=== PATIENT | female | born 1955 | race Caucasian/White ===

== ENCOUNTER 2022-12-17 15:32 | Emergency (ER) | payer OTHER ==
[~2022-12-17 15:32] MED LIST: Iopamidol-370 76% 500 ML MDV (1 ML CHARGE) ONE
[2022-12-17] MEDS ORDERED: Ondansetron PF 4 MG/2 ML Vial ONE (15:55)
[2022-12-17] MEDS ORDERED: Morphine 4 MG/ML VIAL ONE ×2 (15:55→18:03)
[2022-12-17] MEDS ORDERED: Boostrix 0.5 ML (Tdap) VIAL (>/=7 yrs of age) ONE (15:56)
[2022-12-17 16:21] LABS: #Basophils 0.1 thou/uL (0.0-0.2); #Eosinphils 0.3 thou/uL (0.0-0.7); #Monocytes 1.3 thou/uL (0.11-0.59); #Neutrophils 9.7 thou/uL (1.40-6.50); %Basophils 0.7 % (0.0-1.0); %Eosinophils 1.9 % (0.0-10.0); %Monocytes 9.3 % (0.0-10.0); %Neutrophils 72.1 % (42.0-75.0); Hemoglobin 12.1 g/dL (12.0-16.0); Mean Corpuscular HGB CONC 31.8 g/dL (32.0-36.0); Mean Corpuscular Hemoglobin 31.5 pg (27.0-31.0); Mean Platelet Volume 10.4 fL (7.4-10.4); Platelet Count 319 10x3/uL (130-400); RBC Distribution Width 14.8 % (11.5-14.5); Red Blood Cell (RBC) Count 3.84 mill/uL (4.20-5.40); White Blood Cell (WBC) Count 13.5 10x3/uL (4.8-10.8)
[2022-12-17 16:49] LABS: ALT (SGPT) 43 U/L (8-55); AST (SGOT) 68 U/L (5-34); Albumin 4.5 g/dL (3.4-4.8); Alkaline Phosphatase 118 U/L (40-110); Anion Gap 18 mmol/L (10-20); BUN (Urea Nitrogen) 25 mg/dL (9.8-20.1); Bilirubin, Total 0.2 mg/dL (0.2-1.2); Calc. Creatinine Clearance 0 mL/min (70-130); Calcium 9.3 mg/dL (7.8-10.44); Carbon Dioxide 14 mmol/L (23-31); Chloride 107 mmol/L (98-107); Estimated GFR 41; Globulin 3.3 g/dL (2.4-3.5); Glucose 105 mg/dL (80-115); Protein, Total 7.8 g/dL (5.8-8.1); Sodium 133 mmol/L (136-145)
[2022-12-17 16:54] LABS: Potassium 6.2 mmol/L (3.5-5.1)
[2022-12-17] MEDS ORDERED: Lidocaine 1% PF 5 ML VIAL ONE (16:56)
[2022-12-17] MEDS ORDERED: Sodium Chloride 0.9% 100 ML ONE ×2 (16:56→17:11)
[2022-12-17] MEDS ORDERED: CEFAZOLIN 1 GM VIAL ONE (16:56)
[2022-12-17] MEDS ORDERED: Ketorolac Tromethamine 30 MG/ML VIAL ONE (17:04)
[2022-12-17] MEDS ORDERED: Piperacillin/Tazobactam 3.375 GM VIAL ONE (17:11)
[2022-12-17] MEDS ORDERED: Sodium Bicarb 50 MEQ/50 ML VIAL ONE (17:41)
[2022-12-17] MEDS ORDERED: Calcium Chloride 1 GM/10 ML Abboject SYRINGE ONE (17:41)
[2022-12-17] MEDS ORDERED: Bacitracin 1 PK ONE (18:06)
[2022-12-17 18:09] LABS: Anion Gap 14 mmol/L (10-20); BUN (Urea Nitrogen) 26 mg/dL (9.8-20.1); CK (CPK) 626 U/L (29-168); Calc. Creatinine Clearance 0 mL/min (70-130); Calcium 8.8 mg/dL (7.8-10.44); Carbon Dioxide 17 mmol/L (23-31); Chloride 107 mmol/L (98-107); Estimated GFR 44; Glucose 114 mg/dL (80-115); Sodium 132 mmol/L (136-145)
[2022-12-17 18:39] LABS: Potassium 6.3 mmol/L (3.5-5.1)
[2022-12-17] MEDS ORDERED: Ipratropium/Albuterol 3 ML NEB ONE (18:52)
[2022-12-17] MEDS ORDERED: Insulin Regular 300 UNITS/3 ML VIAL ONE (19:12)
== END 2022-12-17 19:23 | disposition short-term general hospital (02) ==
LOC: ERS 15:32
DX: K22.3 Perforation of esophagus (principal); J94.2 Hemothorax; E87.5 Hyperkalemia; E78.00 Pure hypercholesterolemia, unspecified; I10 Essential (primary) hypertension; F17.210 Nicotine dependence, cigarettes, uncomplicated
CPT/HCPCS: 12001; 36415; 36416; 70450; 71045; 71260; 72125; 74177; 80053; 82550; 85025; 86850; 86900; 86901; 90471; 90715; 93005; 94640; 96365; 96375; 96376; G0390; J0690; J1815; J1885; J2270; J2405; J2543; J3490; J7620; Q9967

== ENCOUNTER 2023-08-17 22:00 | Inpatient (IN) | payer MEDICARE, OTHER ==
[2023-08-18] MEDS: Lactated Ringer's 1,000 ML IV SCH (00:12)
[2023-08-18] MEDS ORDERED: Acetaminophen 325 MG TAB PO PRN (00:40)
[2023-08-18] MEDS ORDERED: Ondansetron PF 4 MG/2 ML Vial IVP PRN (00:40)
[2023-08-18] MEDS: Morphine 4 MG/ML VIAL SLOW IVP PRN (01:00)
[2023-08-18] MEDS ORDERED: HYDROcodone/Acetaminophen 10/325 mg Tablet PO PRN (01:44)
[2023-08-18] MEDS: Piperacillin/Tazobactam 3.375 GM in Sodium Chloride 0.9% 100 ML IVPB SCH (02:33)
[2023-08-18] MEDS: Thiamine HCl 200 MG/2 ML VIAL SLOW IVP SCH (02:36)
[2023-08-18 02:49] LABS: Amphetamine Not Detected (NotDetected); Barbiturates Screen Not Detected (NotDetected); Benzodiazepine Screen Detected (NotDetected); Cocaine Metabolite Screen Not Detected (NotDetected); Methadone Not Detected (NotDetected); Methamphetamine Not Detected (NotDetected); Opiate Screen Detected (NotDetected); Oxycodone Screen Not Detected (NotDetected); Phencyclidine (PCP) Not Detected (NotDetected); THC/Cannabinoid Screen Detected (NotDetected); Tricyclic Screen Not Detected (NotDetected)
[2023-08-18] MEDS: HYDROmorphone 0.5 MG/0.5 ML SYRINGE SLOW IVP SCH (02:57)
[2023-08-18 03:05] LABS: Hematocrit 40.3 % (36.0-47.0); Hemoglobin 13.6 g/dL (12.0-16.0); Mean Corpuscular HGB CONC 33.7 g/dL (32.0-36.0); Mean Corpuscular Hemoglobin 31.1 pg (27.0-31.0); Mean Platelet Volume 10.9 fL (7.4-10.4); Platelet Count 472 10x3/uL (130-400); RBC Distribution Width 14.4 % (11.5-14.5); Red Blood Cell (RBC) Count 4.38 mill/uL (4.20-5.40)
[2023-08-18 03:17] LABS: ALT (SGPT) 14 U/L (8-55); AST (SGOT) 22 U/L (5-34); Albumin 3.2 g/dL (3.4-4.8); Alkaline Phosphatase 106 U/L (40-110); Anion Gap 19 mmol/L (10-20); BUN (Urea Nitrogen) 11 mg/dL (9.8-20.1); Bilirubin, Total 0.4 mg/dL (0.2-1.2); Calc. Creatinine Clearance 0 mL/min (70-130); Carbon Dioxide 22 mmol/L (23-31); Chloride 98 mmol/L (98-107); Estimated GFR 91; Globulin 5.2 g/dL (2.4-3.5); Glucose 158 mg/dL (80-115); Magnesium 1.5 mg/dL (1.6-2.6); Potassium 3.8 mmol/L (3.5-5.1); Protein, Total 8.4 g/dL (5.8-8.1); Sodium 135 mmol/L (136-145)
[2023-08-18 03:36] LABS: Band 5 % (5-11); Macrocytosis SLIGHT = 6-15 cells HPF (0-5); Monocytes 6 % (0-10); Neutrophil 89 % (42-75); Platelet Adequacy Comment Platelets Increased; Polychromasia SLIGHT = 2-3 cells HPF (0-2); Vacuoles SLIGHT
[2023-08-18] MEDS: Lactated Ringer's 500 ML IV SCH (03:43)
[2023-08-18 03:52] VITALS: BMI 21.9
[2023-08-18] MEDS: Magnesium 2 GM/50 ML(in water) 2 GM in Premix 1 BAG IVPB SCH (03:53)
[2023-08-18] MEDS: Labetalol HCl 100 MG/20 ML VIAL SLOW IVP SCH (03:54)
[2023-08-18] MEDS: hydrALAZINE 20 MG/ML VIAL SLOW IVP SCH (04:07)
[2023-08-18] MEDS ORDERED: Labetalol HCl 100 MG/20 ML VIAL SLOW IVP PRN ×2 (05:05→05:19)
[2023-08-18] MEDS ORDERED: Piperacillin/Tazobactam 4.5 GM in Sodium Chloride 0.9% 100 ML IVPB SCH (06:00)
[2023-08-18 06:26] LABS: #Basophils 0.05 10x3/uL (0.0-0.2); #Eosinphils Less than 0.03 10x3/uL (0.0-0.7); %Basophils 0.2 % (0.0-1.0); %Monocytes 8.9 % (0.0-10.0); %Neutrophils 88.4 % (42.0-75.0); Hematocrit 39.9 % (36.0-47.0); Hemoglobin 13.4 g/dL (12.0-16.0); Mean Corpuscular HGB CONC 33.6 g/dL (32.0-36.0); Mean Corpuscular Volume 92.4 fL (78.0-98.0); Mean Platelet Volume 11.7 fL (7.4-10.4); Platelet Count 515 10x3/uL (130-400); RBC Distribution Width 14.4 % (11.5-14.5); Red Blood Cell (RBC) Count 4.32 mill/uL (4.20-5.40)
[2023-08-18 06:34] LABS: Lactic Acid 2.9 mmol/L (0.5-2.2)
[2023-08-18 06:37] LABS: Hemoglobin A1c 5.4 % (4.0-6.0)
[2023-08-18 06:41] LABS: Anion Gap 20 mmol/L (10-20); BUN (Urea Nitrogen) 10 mg/dL (9.8-20.1); Calc. Creatinine Clearance 64 mL/min (70-130); Calcium 10.2 mg/dL (7.8-10.44); Carbon Dioxide 23 mmol/L (23-31); Chloride 96 mmol/L (98-107); Estimated GFR 95; Glucose 133 mg/dL (80-115); Potassium 3.6 mmol/L (3.5-5.1); Sodium 135 mmol/L (136-145)
[2023-08-18] MEDS ORDERED: diphenhydrAMINE 50 MG/ML VIAL IM PRN (07:02)
[2023-08-18] MEDS ORDERED: Naloxone HCl 0.4 mg/ml Vial IV PRN (07:02)
[2023-08-18] MEDS ORDERED: diphenhydrAMINE 25 MG CAP PO PRN (07:02)
[2023-08-18] MEDS ORDERED: diphenhydrAMINE 50 MG/ML VIAL IVP PRN (07:02)
[2023-08-18] MEDS ORDERED: FENTANYL 500 MCG/10 ML VIAL 2,000 MCG in Sodium Chloride 0.9% 60 ML IV PRN (07:02)
[2023-08-18] MEDS ORDERED: Communication Order-Pharmacy FS SCH (07:15)
[2023-08-18] MEDS ORDERED: Lidocaine 2% PF 5 ML VIAL ONE (07:27)
[2023-08-18] MEDS ORDERED: Ondansetron PF 4 MG/2 ML Vial ONE (07:27)
[2023-08-18] MEDS ORDERED: Dexamethasone 4 mg/ml Vial ONE (07:27)
[2023-08-18] MEDS ORDERED: SUCCINYLCHOLINE/SOD CL,ISO/PF 200 MG/10 ML SYRINGE FS ONE (07:27)
[2023-08-18] MEDS ORDERED: fentaNYL PF 100 MCG/2 ML SYRINGE ONE (07:27)
[2023-08-18] MEDS ORDERED: Rocuronium Bromide 10 MG/ML (10ML VIAL) ONE (07:27)
[2023-08-18] MEDS ORDERED: PROPOFOL 40 ML ONE (07:27)
[2023-08-18] MEDS ORDERED: EPINEPHrine 1 MG/ML VIAL ONE (07:42)
[2023-08-18] MEDS ORDERED: Bupivacaine PF 0.5% 30 ML VIAL ONE (07:42)
[2023-08-18] MEDS ORDERED: Etomidate 40 MG (20 mL) VIAL ONE (07:43)
[2023-08-18] MEDS ORDERED: Albumin 5% 250 ML ONE (07:43)
[2023-08-18] MEDS ORDERED: Magnesium 5 GM/10 ML VIAL ONE (08:00)
[2023-08-18] MEDS ORDERED: HYDROmorphone 2 MG/ML VIAL ONE (08:07)
[2023-08-18] MEDS ORDERED: Midazolam HCl 2 mg/2 ml Vial ONE (08:10)
[2023-08-18] MEDS ORDERED: Ketamine In 0.9 % NaCl 50 MG/5 ML SYRINGE ONE (08:26)
[2023-08-18] MEDS ORDERED: PHENYLEPHRINE-NS 100 MCG/ML 10 ML SYRINGE ONE (08:58)
[2023-08-18] MEDS ORDERED: Fentanyl BOLUS 250 ML IVPB PRN (10:30)
[2023-08-18] MEDS: Propofol 1,000 MG/100 ML VIAL IV ONE (10:30)
[2023-08-18] MEDS ORDERED: Propofol BOLUS 1,000 MG/100 ML VIAL IV PRN (10:30)
[2023-08-18] MEDS: Fentanyl CADD 100 ML ONE (10:30)
[2023-08-18 10:45] LABS: Actual Bicarbonate (HCO3a) 23.2 mEq/L (22-28); Base Excess (BEa) 0.4 mEq/L (-2.0 to +3.0); CO2 Tension 31.3 mmHg (35.0-45.0); Calcium, Ionized (arterial) 1.08 mmol/L (1.12-1.30); Carboxyhemoglobin (COHb) 0.4 gm% (0.0-3.0); Hematocrit-ABG 34 % (36.0-47.0); Hemoglobin (Hb) 11.4 g/dL (12.0-16.0); O2 Tension (PaO2), arterial 71.1 mmHg (> 80.0); Potassium - ABG Lab 3.16 mmol/L (3.70-5.30); pH, Arterial 7.488 (7.35-7.45)
[2023-08-18 10:46] LABS: Puncture Site RRA
[2023-08-18] MEDS: Lorazepam 2 MG/ML VIAL SLOW IVP PRN (15:00)
[2023-08-18] MEDS: Propofol 1,000 MG/100 ML VIAL IV PRN (16:44)
[2023-08-18] MEDS: Acetaminophen 650 MG Suppository PR PRN (18:28)
[2023-08-18 21:33] LABS: Hematocrit 29.8 % (36.0-47.0); Hemoglobin 10.1 g/dL (12.0-16.0); Mean Corpuscular HGB CONC 33.9 g/dL (32.0-36.0); Mean Corpuscular Hemoglobin 30.1 pg (27.0-31.0); Mean Corpuscular Volume 88.7 fL (78.0-98.0); Mean Platelet Volume 11.1 fL (7.4-10.4); Platelet Count 335 10x3/uL (130-400); RBC Distribution Width 14.5 % (11.5-14.5); Red Blood Cell (RBC) Count 3.36 mill/uL (4.20-5.40)
[2023-08-18 21:49] LABS: Lactic Acid 1.3 mmol/L (0.5-2.2)
[2023-08-18 21:51] LABS: Phosphorus 3.2 mg/dL (2.3-4.7)
[2023-08-18 21:55] LABS: Anion Gap 18 mmol/L (10-20); BUN (Urea Nitrogen) 9 mg/dL (9.8-20.1); Calc. Creatinine Clearance 67 mL/min (70-130); Calcium 8.4 mg/dL (7.8-10.44); Carbon Dioxide 21 mmol/L (23-31); Chloride 100 mmol/L (98-107); Estimated GFR 97; Glucose 120 mg/dL (80-115); Magnesium 1.9 mg/dL (1.6-2.6); Potassium 3.3 mmol/L (3.5-5.1); Sodium 136 mmol/L (136-145)
[2023-08-18 22:06] LABS: Band 29 % (5-11); Hypochromia SLIGHT = 6-15 cells HPF (0-5); Large Platelets 2.9 % (0-5); Lymphocytes 12 % (21-51); Monocytes 3 % (0-10); Neutrophil 55 % (42-75); Platelet Adequacy Comment Platelets Normal; Polychromasia SLIGHT = 2-3 cells HPF (0-2); Reactive Lymphocytes 1 % (0-10)
[2023-08-18] MEDS: Potassium Chloride 20 MEQ in Premix 1 BAG IVPB SCH (23:20)
[2023-08-19 04:09] LABS: Hematocrit 30.9 % (36.0-47.0); Hemoglobin 10.2 g/dL (12.0-16.0); Mean Corpuscular Hemoglobin 30.5 pg (27.0-31.0); Mean Corpuscular Volume 92.5 fL (78.0-98.0); Mean Platelet Volume 11.5 fL (7.4-10.4); Platelet Count 280 10x3/uL (130-400); RBC Distribution Width 14.6 % (11.5-14.5); Red Blood Cell (RBC) Count 3.34 mill/uL (4.20-5.40)
[2023-08-19 04:37] LABS: Anisocytosis SLIGHT = 6-15 cells HPF (0-5); Band 11 % (5-11); Hypochromia SLIGHT = 6-15 cells HPF (0-5); Large Platelets 6.9 % (0-5); Lymphocytes 8 % (21-51); Monocytes 4 % (0-10); Neutrophil 77 % (42-75); Platelet Adequacy Comment Platelets Normal; Polychromasia SLIGHT = 2-3 cells HPF (0-2)
[2023-08-19 04:45] LABS: Lactic Acid 1.1 mmol/L (0.5-2.2)
[2023-08-19 04:54] LABS: ALT (SGPT) 10 U/L (8-55); AST (SGOT) 21 U/L (5-34); Albumin 2.2 g/dL (3.4-4.8); Alkaline Phosphatase 77 U/L (40-110); Anion Gap 18 mmol/L (10-20); BUN (Urea Nitrogen) 10 mg/dL (9.8-20.1); Bilirubin, Total 0.7 mg/dL (0.2-1.2); Calc. Creatinine Clearance 72 mL/min (70-130); Calcium 8.7 mg/dL (7.8-10.44); Carbon Dioxide 18 mmol/L (23-31); Chloride 102 mmol/L (98-107); Estimated GFR 98; Globulin 3.7 g/dL (2.4-3.5); Glucose 93 mg/dL (80-115); Protein, Total 5.9 g/dL (5.8-8.1); Sodium 134 mmol/L (136-145)
[2023-08-19] MEDS: Fentanyl CADD 100 ML IV SCH (05:54)
[2023-08-19] MEDS: Pantoprazole 40 MG VIAL IVP SCH (10:15)
[2023-08-19] MEDS ORDERED: Rocuronium Bromide 10 MG/ML (10ML VIAL) ONE (11:24)
[2023-08-19] MEDS ORDERED: PROPOFOL 20 ML ONE (11:24)
[2023-08-19] MEDS ORDERED: fentaNYL PF 100 MCG/2 ML SYRINGE ONE ×2 (11:24→12:24)
[2023-08-19] MEDS ORDERED: SUGAMMADEX SODIUM 200 MG/2 ML VIAL ONE (12:20)
[2023-08-19] MEDS ORDERED: Dexamethasone 4 mg/ml Vial ONE (12:24)
[2023-08-19] MEDS ORDERED: Ondansetron PF 4 MG/2 ML Vial ONE (12:24)
[2023-08-19] MEDS ORDERED: HYDROmorphone 2 MG/ML VIAL ONE (12:27)
[2023-08-19] MEDS ORDERED: Esmolol 100 MG/10 ML VIAL ONE (12:38)
[2023-08-19 13:55] VITALS: BMI 21.9
[2023-08-19] MEDS: Morphine 2 MG/ML VIAL SLOW IVP PRN (22:02)
[2023-08-20 05:11] LABS: Hematocrit 20.4 % (36.0-47.0); Hemoglobin 6.8 g/dL (12.0-16.0); Mean Corpuscular HGB CONC 33.3 g/dL (32.0-36.0); Mean Corpuscular Hemoglobin 30.9 pg (27.0-31.0); Mean Corpuscular Volume 92.7 fL (78.0-98.0); Mean Platelet Volume 11.3 fL (7.4-10.4); Platelet Count 369 10x3/uL (130-400)
[2023-08-20 05:20] LABS: Anion Gap 16 mmol/L (10-20); BUN (Urea Nitrogen) 11 mg/dL (9.8-20.1); Calc. Creatinine Clearance 73 mL/min (70-130); Carbon Dioxide 23 mmol/L (23-31); Chloride 101 mmol/L (98-107); Potassium 3.1 mmol/L (3.5-5.1); Sodium 137 mmol/L (136-145)
[2023-08-20 05:21] LABS: Calcium 8.3 mg/dL (7.8-10.44); Estimated GFR 99; Glucose 104 mg/dL (80-115); Phosphorus 3.1 mg/dL (2.3-4.7)
[2023-08-20 05:44] LABS: Anisocytosis SLIGHT = 6-15 cells HPF (0-5); Band 6 % (5-11); Lymphocytes 4 % (21-51); Macrocytosis SLIGHT = 6-15 cells HPF (0-5); Monocytes 6 % (0-10); Neutrophil 84 % (42-75); Platelet Adequacy Comment Platelets Normal; Polychromasia SLIGHT = 2-3 cells HPF (0-2); Smudge Cells 6.9 %
[2023-08-20] MEDS ORDERED: Dexmedetomidine In 0.9 % NaCl 100 ML IVPB SCH (09:00)
[2023-08-20] MEDS: DC Sedation Protocol FS ONE (10:23)
[2023-08-20] MEDS ORDERED: Electrolyte Replacement Protocol 1 EACH FS SCH (14:44)
[2023-08-20] MEDS: Lactated Ringer's 1,000 ML IV SCH (15:48)
[2023-08-20] MEDS: Magnesium 2 GM/50 ML(in water) 2 GM in Premix 1 BAG IVPB SCH (15:48)
[2023-08-20] MEDS: Potassium Chloride 20 MEQ in Premix 1 BAG IVPB SCH (15:49)
[2023-08-20] MEDS: Ketorolac Tromethamine 30 MG (1 mL) VIAL IVP PRN (17:50)
[2023-08-20 20:57] LABS: #Basophils 0.05 10x3/uL (0.0-0.2); #Eosinphils Less than 0.03 10x3/uL (0.0-0.7); %Basophils 0.3 % (0.0-1.0); %Eosinophils 0.1 % (0.0-10.0); %Monocytes 7.1 % (0.0-10.0); %Neutrophils 84.8 % (42.0-75.0); Hematocrit 34.8 % (36.0-47.0); Hemoglobin 11.9 g/dL (12.0-16.0); Mean Corpuscular HGB CONC 34.2 g/dL (32.0-36.0); Mean Corpuscular Hemoglobin 30.5 pg (27.0-31.0); Mean Corpuscular Volume 89.2 fL (78.0-98.0); Mean Platelet Volume 11.5 fL (7.4-10.4); Platelet Count 273 10x3/uL (130-400); RBC Distribution Width 17.2 % (11.5-14.5)
[2023-08-20 20:58] LABS: Plasma Cells 0 % (0-0); Platelet Adequacy Comment Appears Adequate
[2023-08-21 05:15] LABS: Hematocrit 34.1 % (36.0-47.0); Hemoglobin 11.6 g/dL (12.0-16.0); Mean Corpuscular Volume 88.1 fL (78.0-98.0); Mean Platelet Volume 11.2 fL (7.4-10.4); Platelet Count 340 10x3/uL (130-400); RBC Distribution Width 17.2 % (11.5-14.5); Red Blood Cell (RBC) Count 3.87 mill/uL (4.20-5.40)
[2023-08-21 05:25] LABS: ALT (SGPT) 15 U/L (8-55); AST (SGOT) 46 U/L (5-34); Albumin 1.6 g/dL (3.4-4.8); Alkaline Phosphatase 79 U/L (40-110); Anion Gap 15 mmol/L (10-20); BUN (Urea Nitrogen) 12 mg/dL (9.8-20.1); Bilirubin, Total 2.3 mg/dL (0.2-1.2); Calc. Creatinine Clearance 72 mL/min (70-130); Calcium 8.1 mg/dL (7.8-10.44); Carbon Dioxide 21 mmol/L (23-31); Chloride 106 mmol/L (98-107); Estimated GFR 98; Glucose 82 mg/dL (80-115); Potassium 3.4 mmol/L (3.5-5.1); Protein, Total 5.6 g/dL (5.8-8.1); Sodium 139 mmol/L (136-145)
[2023-08-21 05:55] LABS: Anisocytosis MODERATE=16-30 cells HPF (0-5); Band 1 % (5-11); Hypochromia SLIGHT = 6-15 cells HPF (0-5); Lymphocytes 4 % (21-51); Monocytes 9 % (0-10); Neutrophil 86 % (42-75); Platelet Adequacy Comment Platelets Normal; Polychromasia SLIGHT = 2-3 cells HPF (0-2)
[2023-08-21] MEDS: Potassium Chloride 20 MEQ in Premix 1 BAG IVPB SCH (09:39)
[2023-08-21] MEDS: Morphine 2 MG/ML VIAL SLOW IVP PRN (11:14)
[2023-08-21 14:52] LABS: Potassium 3.8 mmol/L (3.5-5.1)
[2023-08-21 14:54] LABS: Hematocrit 35.7 % (36.0-47.0); Hemoglobin 12.1 g/dL (12.0-16.0)
[2023-08-21] MEDS: Magnesium 2 GM/50 ML(in water) 2 GM in Premix 1 BAG IVPB SCH (17:03)
[2023-08-21] MEDS: Dextrose 5%-Lactated Ringers 1,000 ML IV SCH (23:25)
[2023-08-22 04:13] LABS: #Basophils 0.08 10x3/uL (0.0-0.2); %Basophils 0.5 % (0.0-1.0); %Eosinophils 0.4 % (0.0-10.0); %Lymphocytes 8.8 % (21.0-51.0); %Monocytes 10.7 % (0.0-10.0); %Neutrophils 76.8 % (42.0-75.0); Hematocrit 35.9 % (36.0-47.0); Hemoglobin 12.3 g/dL (12.0-16.0); Mean Corpuscular HGB CONC 34.3 g/dL (32.0-36.0); Mean Corpuscular Hemoglobin 29.3 pg (27.0-31.0); Mean Corpuscular Volume 85.5 fL (78.0-98.0); Mean Platelet Volume 10.5 fL (7.4-10.4); Platelet Count 407 10x3/uL (130-400); RBC Distribution Width 16.5 % (11.5-14.5)
[2023-08-22 04:26] LABS: ALT (SGPT) 17 U/L (8-55); AST (SGOT) 42 U/L (5-34); Albumin 1.7 g/dL (3.4-4.8); Alkaline Phosphatase 115 U/L (40-110); Anion Gap 16 mmol/L (10-20); BUN (Urea Nitrogen) 8 mg/dL (9.8-20.1); Bilirubin, Total 2.4 mg/dL (0.2-1.2); Calc. Creatinine Clearance 81 mL/min (70-130); Calcium 8.2 mg/dL (7.8-10.44); Carbon Dioxide 20 mmol/L (23-31); Chloride 102 mmol/L (98-107); Estimated GFR 101; Globulin 4.2 g/dL (2.4-3.5); Glucose 108 mg/dL (80-115); Potassium 2.8 mmol/L (3.5-5.1); Protein, Total 5.9 g/dL (5.8-8.1); Sodium 135 mmol/L (136-145)
[2023-08-22] MEDS: Potassium Chloride 40 MEQ in Premix 1 BAG IVPB SCH (04:50)
[2023-08-22] MEDS ORDERED: NS 0.9% w/ 20 MEQ KCL 1,000 ML/1,000 ML BAG IV SCH (07:30)
[2023-08-22] MEDS: Enoxaparin 40 MG (0.4 mL) SYRINGE SC SCH (08:02)
[2023-08-22] MEDS: D5 0.9% NS w/ 20 mEq KCl 1,000 ML IV SCH ×2 (10:36→17:58)
[2023-08-22 14:03] LABS: Anion Gap 13 mmol/L (10-20); Carbon Dioxide 21 mmol/L (23-31); Chloride 104 mmol/L (98-107); Potassium 3.5 mmol/L (3.5-5.1); Sodium 134 mmol/L (136-145)
[2023-08-22 14:54] LABS: Potassium 3.5 mmol/L (3.5-5.1)
[2023-08-22] MEDS: Ketorolac Tromethamine 30 MG (1 mL) VIAL IVP SCH (15:10)
[2023-08-22] MEDS: Acetaminophen 500 MG TAB PO SCH (21:09)
[2023-08-22] MEDS: Gabapentin 300 MG CAP PO SCH (21:10)
[2023-08-22] MEDS: ALPRAZolam 0.5 MG TAB PO PRN (21:13)
[2023-08-23 06:19] LABS: ALT (SGPT) 20 U/L (8-55); AST (SGOT) 33 U/L (5-34); Albumin 1.7 g/dL (3.4-4.8); Alkaline Phosphatase 107 U/L (40-110); Anion Gap 11 mmol/L (10-20); BUN (Urea Nitrogen) 6 mg/dL (9.8-20.1); Calc. Creatinine Clearance 95 mL/min (70-130); Carbon Dioxide 19 mmol/L (23-31); Chloride 107 mmol/L (98-107); Estimated GFR 105; Glucose 99 mg/dL (80-115); Potassium 3.4 mmol/L (3.5-5.1); Protein, Total 5.7 g/dL (5.8-8.1); Sodium 134 mmol/L (136-145)
[2023-08-23 06:55] LABS: #Basophils 0.04 10x3/uL (0.0-0.2); %Basophils 0.3 % (0.0-1.0); %Eosinophils 1.9 % (0.0-10.0); %Lymphocytes 10.8 % (21.0-51.0); %Monocytes 10.5 % (0.0-10.0); %Neutrophils 73.7 % (42.0-75.0); Hematocrit 35.5 % (36.0-47.0); Hemoglobin 12.1 g/dL (12.0-16.0); Mean Corpuscular HGB CONC 34.1 g/dL (32.0-36.0); Mean Corpuscular Hemoglobin 29.7 pg (27.0-31.0); Mean Platelet Volume 10.8 fL (7.4-10.4); Platelet Count 406 10x3/uL (130-400); RBC Distribution Width 16.2 % (11.5-14.5); Red Blood Cell (RBC) Count 4.08 mill/uL (4.20-5.40)
[2023-08-23] MEDS: Potassium Chloride 20 MEQ TAB PO SCH (08:42)
[2023-08-23] MEDS: Gabapentin 300 MG CAP PO SCH (08:43)
[2023-08-24 06:29] LABS: #Basophils 0.04 10x3/uL (0.0-0.2); %Basophils 0.3 % (0.0-1.0); %Eosinophils 1.8 % (0.0-10.0); %Lymphocytes 9.5 % (21.0-51.0); %Monocytes 10.7 % (0.0-10.0); %Neutrophils 75.2 % (42.0-75.0); Hematocrit 36.6 % (36.0-47.0); Hemoglobin 12.3 g/dL (12.0-16.0); Mean Corpuscular HGB CONC 33.6 g/dL (32.0-36.0); Mean Corpuscular Hemoglobin 29.6 pg (27.0-31.0); Mean Platelet Volume 9.9 fL (7.4-10.4); Platelet Count 443 10x3/uL (130-400); Red Blood Cell (RBC) Count 4.16 mill/uL (4.20-5.40)
[2023-08-24 07:12] LABS: ALT (SGPT) 19 U/L (8-55); AST (SGOT) 24 U/L (5-34); Albumin 1.9 g/dL (3.4-4.8); Alkaline Phosphatase 101 U/L (40-110); Anion Gap 13 mmol/L (10-20); BUN (Urea Nitrogen) 7 mg/dL (9.8-20.1); Bilirubin, Total 1.3 mg/dL (0.2-1.2); Calc. Creatinine Clearance 91 mL/min (70-130); Calcium 8.5 mg/dL (7.8-10.44); Carbon Dioxide 18 mmol/L (23-31); Chloride 110 mmol/L (98-107); Estimated GFR 104; Globulin 4.1 g/dL (2.4-3.5); Glucose 100 mg/dL (80-115); Potassium 3.4 mmol/L (3.5-5.1); Sodium 138 mmol/L (136-145)
[2023-08-24] MEDS ORDERED: Electrolyte Replacement Protocol 1 EACH FS SCH (07:30)
[2023-08-24] MEDS: Potassium Bicarbonate/Cit Ac 20 MEQ TAB PO SCH ×2 (10:00→14:55)
[2023-08-24] MEDS ORDERED: Cyclobenzaprine 10 MG TAB PO PRN (12:00)
[2023-08-24] MEDS: Potassium Chloride 20 MEQ TAB PO SCH (12:43)
[2023-08-24 14:10] VITALS: BP 110/67; TEMP 97.5
[2023-08-24] MEDS ORDERED: Amlodipine 10 MG TAB PO SCH (21:00)
[2023-08-25] MEDS ORDERED: Losartan 25 MG TAB PO SCH (09:00)
[2023-08-25] MEDS ORDERED: Pantoprazole DR 40 MG TAB PO SCH (09:00)
[2023-08-25] MEDS ORDERED: Thiamine 100 MG TAB PO SCH (09:00)
== END 2023-08-24 15:30 | disposition home or self-care (01) | DRG 329 ==
LOC: PREOBSVTOIN 22:06 → 2NO 08-18 00:12 → CCU 08-18 09:37 → SURG A 08-23 00:36
PROVIDERS: ADMIT Internal Medicine; ATTEND Family Medicine
PROC: 0T9B70Z Drainage of Bladder with Drainage Device, Via Natural or Artificial Opening (ICD-10-PCS; principal; 2023-08-18)
PROC: 0DTA0ZZ Resection of Jejunum, Open Approach (ICD-10-PCS; 2023-08-18)
PROC: 0DTJ4ZZ Resection of Appendix, Percutaneous Endoscopic Approach (ICD-10-PCS; 2023-08-18)
PROC: 0DJD4ZZ Inspection of Lower Intestinal Tract, Percutaneous Endoscopic Approach (ICD-10-PCS; 2023-08-18)
PROC: 0BH17EZ Insertion of Endotracheal Airway into Trachea, Via Natural or Artificial Opening (ICD-10-PCS; 2023-08-18)
PROC: 4A03XR1 Measurement of Arterial Saturation, Peripheral, External Approach (ICD-10-PCS; 2023-08-18)
PROC: 5A1945Z Respiratory Ventilation, 24-96 Consecutive Hours (ICD-10-PCS; 2023-08-18)
PROC: 30233N1 Transfusion of Nonautologous Red Blood Cells into Peripheral Vein, Percutaneous Approach (ICD-10-PCS; 2023-08-20)
DX: K55.059 Acute (reversible) ischemia of intestine, part and extent unspecified (principal); A41.9 Sepsis, unspecified organism; J95.821 Acute postprocedural respiratory failure; K35.33 Acute appendicitis with perforation, localized peritonitis, and gangrene, with abscess; E87.20 Acidosis, unspecified; E87.1 Hypo-osmolality and hyponatremia; D62 Acute posthemorrhagic anemia; K55.9 Vascular disorder of intestine, unspecified; K55.1 Chronic vascular disorders of intestine; I10 Essential (primary) hypertension; E78.5 Hyperlipidemia, unspecified; G47.33 Obstructive sleep apnea (adult) (pediatric); M19.90 Unspecified osteoarthritis, unspecified site; F17.200 Nicotine dependence, unspecified, uncomplicated; G89.29 Other chronic pain; M54.9 Dorsalgia, unspecified; D72.829 Elevated white blood cell count, unspecified; F41.1 Generalized anxiety disorder; F17.210 Nicotine dependence, cigarettes, uncomplicated; E11.51 Type 2 diabetes mellitus with diabetic peripheral angiopathy without gangrene; I25.10 Atherosclerotic heart disease of native coronary artery without angina pectoris; E87.6 Hypokalemia; Z79.810 Long term (current) use of selective estrogen receptor modulators (SERMs); Z88.8 Allergy status to other drugs, medicaments and biological substances; Z98.1 Arthrodesis status
CPT/HCPCS: 36415; 36416; 36430; 36600; 71045; 80048; 80053; 80306; 82805; 83036; 83605; 83735; 84100; 85025; 86850; 86900; 86901; 87040; 88307; 94002; 94003; A4314; C1751; C9113; J0171; J0665; J1100; J1170; J1650; J1885; J2001; J2060; J2250; J2270; J2272; J2405; J2543; J2704; J3010; J3411; J3475; J3480; J3490; J7120; P9016; P9045

== ENCOUNTER 2023-09-05 14:41 | Emergency (ER) | payer MEDICARE, OTHER ==
[2023-09-05] MEDS ORDERED: Ondansetron PF 4 MG/2 ML Vial ONE (15:35)
[2023-09-05] MEDS ORDERED: Morphine 4 MG/ML VIAL ONE (15:35)
[2023-09-05 16:32] LABS: Bilirubin Negative (Negative); Blood, Urine Negative (Negative); CAUTI Indications for Culture Pelvic or flank pain; Clarity Clear (Clear); Glucose, Urine (Dipstick) Normal (Negative); Ketone, Urine Negative (Negative); Leukocyte Negative Leu/uL (Negative); Nitrite Negative (Negative); Protein, Urine (Dipstick) Negative (Neg-Trace); RBC/HPF 0-3 HPF (0-3); Specific Gravity, Urine 1.007 (1.002-1.036); Urobilinogen Normal mg/dL (Less than 2); WBC/HPF 0-3 HPF (0-3)
[2023-09-05 16:41] LABS: Bacteria/HPF 1+ HPF (None Seen)
[2023-09-05 16:42] LABS: Urine Culture Reflex No No
[2023-09-05 17:11] LABS: ALT (SGPT) 13 U/L (8-55); AST (SGOT) 23 U/L (5-34); Albumin 2.7 g/dL (3.4-4.8); Alkaline Phosphatase 95 U/L (40-110); Anion Gap 15 mmol/L (10-20); BUN (Urea Nitrogen) 9 mg/dL (9.8-20.1); Bilirubin, Total 0.4 mg/dL (0.2-1.2); Calc. Creatinine Clearance 0 mL/min (70-130); Calcium 8.8 mg/dL (7.8-10.44); Carbon Dioxide 23 mmol/L (23-31); Chloride 106 mmol/L (98-107); Estimated GFR 100; Glucose 108 mg/dL (80-115); Lipase 56 U/L (8-78); Protein, Total 6.7 g/dL (5.8-8.1); Sodium 141 mmol/L (136-145); Troponin I 0.028 ng/mL (< 0.028)
[2023-09-05 17:47] LABS: #Basophils 0.06 10x3/uL (0.0-0.2); %Basophils 0.5 % (0.0-1.0); %Eosinophils 0.6 % (0.0-10.0); %Lymphocytes 18.8 % (21.0-51.0); %Monocytes 7.7 % (0.0-10.0); %Neutrophils 72.1 % (42.0-75.0); Hematocrit 47.2 % (36.0-47.0); Hemoglobin 15.2 g/dL (12.0-16.0); Mean Corpuscular HGB CONC 32.2 g/dL (32.0-36.0); Mean Corpuscular Hemoglobin 29.2 pg (27.0-31.0); Mean Corpuscular Volume 90.8 fL (78.0-98.0); Mean Platelet Volume 10.5 fL (7.4-10.4); Platelet Count 574 10x3/uL (130-400); RBC Distribution Width 15.9 % (11.5-14.5)
[2023-09-05] MEDS ORDERED: Piperacillin/Tazobactam 3.375 GM VIAL ONE (18:31)
== END 2023-09-05 19:26 | disposition home or self-care (01) ==
LOC: ERS 14:41
DX: K55.1 Chronic vascular disorders of intestine (principal); I10 Essential (primary) hypertension; F17.210 Nicotine dependence, cigarettes, uncomplicated
CPT/HCPCS: 74177; 80053; 81001; 83605; 83690; 84484; 85025; J2270; J2405; J2543; Q9967; 36415

== ENCOUNTER 2023-10-10 16:55 | Inpatient (IN) | payer MEDICARE, OTHER ==
[2023-10-10 17:59] LABS: Troponin I 0.465 ng/mL (< 0.028)
[2023-10-10 18:21] LABS: INR-International Normal Ratio 1.3; Prothrombin Time 16.2 sec (12.0-14.7)
[2023-10-10 18:22] LABS: PTT 116.4 sec (22.9-36.1)
[2023-10-10] MEDS ORDERED: Nitroglycerin 0.4 MG TAB (25 Tab Bottle) SL PRN (18:31)
[2023-10-10] MEDS ORDERED: Ondansetron PF 4 MG/2 ML Vial IVP PRN (18:31)
[2023-10-10] MEDS ORDERED: Nitroglycerin 50 MG/250 ML BOT 250 ML IVPB SCH (18:45)
[2023-10-10 19:31] LABS: Hematocrit 31.1 % (36.0-47.0); Hemoglobin 10.2 g/dL (12.0-16.0); Platelet Count 468 10x3/uL (130-400)
[2023-10-10] MEDS: Aspirin 325 mg Enteric Coated Tablet PO SCH (19:44)
[2023-10-10 19:55] LABS: Troponin I 0.514 ng/mL (< 0.028)
[2023-10-10] MEDS: Metoprolol Tartrate 5 MG (5 mL) VIAL IVP SCH (20:22)
[2023-10-10] MEDS: Gabapentin 300 MG CAP PO SCH ×2 (21:08→21:10)
[2023-10-10] MEDS: Mirtazapine 15 MG TAB PO SCH (21:09)
[2023-10-10 23:32] LABS: Troponin I 0.469 ng/mL (< 0.028)
[2023-10-11] MEDS: Sodium Chloride 0.9% 1,000 ML IV SCH ×3 (00:25→12:11)
[2023-10-11 02:08] LABS: #Basophils 0.07 10x3/uL (0.0-0.2); %Basophils 0.7 % (0.0-1.0); %Eosinophils 5.7 % (0.0-10.0); %Lymphocytes 30.9 % (21.0-51.0); %Monocytes 8.2 % (0.0-10.0); %Neutrophils 54.1 % (42.0-75.0); Hematocrit 30.1 % (36.0-47.0); Hemoglobin 9.9 g/dL (12.0-16.0); Mean Corpuscular HGB CONC 32.9 g/dL (32.0-36.0); Mean Corpuscular Hemoglobin 29.3 pg (27.0-31.0); Mean Corpuscular Volume 89.1 fL (78.0-98.0); Mean Platelet Volume 10.2 fL (7.4-10.4); Platelet Count 381 10x3/uL (130-400); RBC Distribution Width 18.2 % (11.5-14.5); Red Blood Cell (RBC) Count 3.38 mill/uL (4.20-5.40)
[2023-10-11 02:36] LABS: Anion Gap 13 mmol/L (10-20); BUN (Urea Nitrogen) 17 mg/dL (9.8-20.1); Calc. Creatinine Clearance 59 mL/min (70-130); Calcium 5.7 mg/dL (7.8-10.44); Carbon Dioxide 17 mmol/L (23-31); Cardiac Risk 4.8 (Less than 4.5); Chloride 116 mmol/L (98-107); Cholesterol 121 mg/dl (< 200 Desired); Estimated GFR 97; Glucose 76 mg/dL (80-115); HDL Cholesterol 25 mg/dL (>60 Neg Risk); LDL Cholesterol, Calculated 65 mg/dL; Magnesium Less than 0.6 mg/dL (1.6-2.6); Sodium 143 mmol/L (136-145); Triglycerides 154 mg/dL (Less than 150)
[2023-10-11] MEDS ORDERED: Electrolyte Replacement Protocol 1 EACH FS PRN (02:47)
[2023-10-11] MEDS: Magnesium Sulfate In Water 4 GM in Premix 1 BAG IVPB SCH (02:55)
[2023-10-11] MEDS: Potassium Chloride 20 MEQ in Premix 1 BAG IVPB SCH ×2 (02:55→21:50)
[2023-10-11] MEDS: CALCIUM GLUC 1 GM/NS 50 ML 1 GM in Premix 1 BAG IVPB SCH ×2 (02:55→10:38)
[2023-10-11] MEDS ORDERED: Calcium Chloride 13.6 MEQ in Sodium Chloride 0.9% 100 ML IVPB SCH (03:00)
[2023-10-11 04:06] LABS: Phosphorus 3.6 mg/dL (2.3-4.7)
[2023-10-11] MEDS ORDERED: Heparin 10,000 UNITS/ 10 ML VIAL ONE (06:44)
[2023-10-11] MEDS ORDERED: Midazolam HCl 2 mg/2 ml Vial ONE (08:28)
[2023-10-11] MEDS ORDERED: fentaNYL 50 mcg/mL 1 mL Vial ONE (08:28)
[2023-10-11] MEDS ORDERED: Lidocaine 1% (PF) 30 ML VIAL ONE (09:04)
[2023-10-11] MEDS ORDERED: Nitroglycerin 4.9 GM Bottle ONE (09:19)
[2023-10-11] MEDS ORDERED: Sodium Chloride 0.9% 200 ML IV PRN (09:41)
[2023-10-11] MEDS: Aspirin 81 mg Enteric Coated Tablet PO SCH (10:37)
[2023-10-11] MEDS: Pantoprazole 40 MG VIAL IVP SCH (10:38)
[2023-10-11] MEDS: ALPRAZolam 0.25 MG TAB PO PRN (11:22)
[2023-10-11] MEDS: traMADol HCl 50 MG TAB PO PRN (11:22)
[2023-10-11] MEDS: Heparin 10,000 UNITS/ 10 ML VIAL SLOW IVP SCH (11:35)
[2023-10-11] MEDS ORDERED: Iopamidol 370 76% 100 ML VIAL ONE (11:44)
[2023-10-11] MEDS ORDERED: Dicyclomine 10 MG CAP PO PRN (13:00)
[2023-10-11 14:25] LABS: Calcium 6.5 mg/dL (7.8-10.44)
[2023-10-11] MEDS: HYDROcodone/Acetaminophen 5/325 mg Tablet PO PRN (14:59)
[2023-10-11 15:12] LABS: Anion Gap 14 mmol/L (10-20); BUN (Urea Nitrogen) 12 mg/dL (9.8-20.1); Calc. Creatinine Clearance 63 mL/min (70-130); Calcium 6.5 mg/dL (7.8-10.44); Carbon Dioxide 15 mmol/L (23-31); Chloride 115 mmol/L (98-107); Critical Call Chemistry ICU.RVP@1510; Estimated GFR 99; Glucose 103 mg/dL (80-115); Magnesium 1.6 mg/dL (1.6-2.6); Phosphorus 2.7 mg/dL (2.3-4.7); Potassium 3.5 mmol/L (3.5-5.1); Sodium 140 mmol/L (136-145)
[2023-10-11] MEDS: Calcium Chloride 13.6 MEQ in Sodium Chloride 0.9% 100 ML IVPB SCH (16:57)
[2023-10-11] MEDS: Magnesium 2 GM/50 ML(in water) 2 GM in Premix 1 BAG IVPB SCH (16:58)
[2023-10-11] MEDS: Gabapentin 300 MG CAP PO SCH (20:18)
[2023-10-11] MEDS: Nitroglycerin 2% Ointment 1 INCH/1 GM Packet TOP SCH (20:19)
[2023-10-11] MEDS: Simethicone Chewable 80 MG TAB PO SCH (22:12)
[2023-10-11] MEDS: Mag-Al 1200 mg/1200 mg/30 ML UDCUP PO PRN (22:13)
[2023-10-12 04:13] LABS: #Basophils 0.06 10x3/uL (0.0-0.2); %Basophils 0.5 % (0.0-1.0); %Lymphocytes 17.9 % (21.0-51.0); %Monocytes 6.2 % (0.0-10.0); Hematocrit 27.8 % (36.0-47.0); Mean Corpuscular HGB CONC 32.4 g/dL (32.0-36.0); Mean Corpuscular Hemoglobin 28.4 pg (27.0-31.0); Mean Corpuscular Volume 87.7 fL (78.0-98.0); Mean Platelet Volume 10.6 fL (7.4-10.4); Platelet Count 383 10x3/uL (130-400); RBC Distribution Width 18.4 % (11.5-14.5); Red Blood Cell (RBC) Count 3.17 mill/uL (4.20-5.40)
[2023-10-12 04:44] LABS: Anion Gap 12 mmol/L (10-20); BUN (Urea Nitrogen) 7 mg/dL (9.8-20.1); Calc. Creatinine Clearance 65 mL/min (70-130); Calcium 6.6 mg/dL (7.8-10.44); Carbon Dioxide 15 mmol/L (23-31); Chloride 117 mmol/L (98-107); Estimated GFR 100; Glucose 84 mg/dL (80-115); Magnesium 1.8 mg/dL (1.6-2.6); Potassium 4.4 mmol/L (3.5-5.1); Sodium 140 mmol/L (136-145)
[2023-10-12] MEDS: Magnesium 2 GM/50 ML(in water) 2 GM in Premix 1 BAG IVPB SCH ×2 (05:32→08:26)
[2023-10-12] MEDS: Calcium Chloride 13.6 MEQ in Sodium Chloride 0.9% 100 ML IVPB SCH (05:33)
[2023-10-12] MEDS: Aspirin 81 mg Enteric Coated Tablet PO SCH (07:53)
[2023-10-12] MEDS: Pantoprazole DR 40 MG TAB PO SCH (07:54)
[2023-10-12] MEDS: cloNIDine 0.1 MG TAB PO SCH (07:54)
[2023-10-12] MEDS: Heparin 25,000 units/D5W 500 ML IVPB SCH (08:03)
[2023-10-12] MEDS: Sodium Bicarbonate Tab 325 MG TAB PO SCH (08:24)
[2023-10-12] MEDS: Acetaminophen/Codeine 30-300mg Tablet PO PRN (12:08)
[2023-10-12 13:42] LABS: Calcium 6.9 mg/dL (7.8-10.44); Magnesium 3.1 mg/dL (1.6-2.6)
[2023-10-12] MEDS: CALCIUM GLUC 1 GM/NS 50 ML 1 GM in Premix 1 BAG IVPB SCH (15:38)
[2023-10-12] MEDS: Nicotine 14 MG PATCH TD SCH (16:33)
[2023-10-12 18:10] LABS: Calcium 7.3 mg/dL (7.6-10.4); Magnesium 2.6 mg/dL (1.6-2.6)
[2023-10-12] MEDS: Nitroglycerin 0.4 MG TAB (25 Tab Bottle) SL PRN (23:18)
[2023-10-12] MEDS: Morphine 2 MG/ML VIAL SLOW IVP SCH (23:25)
[2023-10-13] MEDS: Magnesium 2 GM/50 ML(in water) 2 GM in Premix 1 BAG IVPB SCH (00:43)
[2023-10-13 05:00] LABS: #Basophils 0.04 10x3/uL (0.0-0.2); %Basophils 0.4 % (0.0-1.0); %Eosinophils 5.9 % (0.0-10.0); %Lymphocytes 23.1 % (21.0-51.0); %Monocytes 5.8 % (0.0-10.0); %Neutrophils 64.4 % (42.0-75.0); Hematocrit 25.9 % (36.0-47.0); Hemoglobin 8.5 g/dL (12.0-16.0); Mean Corpuscular HGB CONC 32.8 g/dL (32.0-36.0); Mean Corpuscular Hemoglobin 29.6 pg (27.0-31.0); Mean Corpuscular Volume 90.2 fL (78.0-98.0); Mean Platelet Volume 10.8 fL (7.4-10.4); Platelet Count 363 10x3/uL (130-400); RBC Distribution Width 18.5 % (11.5-14.5); Red Blood Cell (RBC) Count 2.87 mill/uL (4.20-5.40)
[2023-10-13 05:21] LABS: Anion Gap 10 mmol/L (10-20); BUN (Urea Nitrogen) 5 mg/dL (9.8-20.1); Calc. Creatinine Clearance 73 mL/min (70-130); Calcium 7.1 mg/dL (7.8-10.44); Carbon Dioxide 19 mmol/L (23-31); Chloride 115 mmol/L (98-107); Estimated GFR 101; Glucose 91 mg/dL (80-115); Magnesium 2.5 mg/dL (1.6-2.6); Potassium 3.6 mmol/L (3.5-5.1); Sodium 140 mmol/L (136-145)
[2023-10-13] MEDS: CALCIUM GLUC 1 GM/NS 50 ML 1 GM in Premix 1 BAG IVPB SCH (09:22)
[2023-10-13 18:02] LABS: Troponin I 0.331 ng/mL (< 0.028)
[2023-10-13] MEDS: Nitroglycerin 50 MG/250 ML BOT 250 ML ONE (18:04)
[2023-10-13 19:23] LABS: Critical Call Chem Troponin I RESULT DECREASING; Troponin I 0.321 ng/mL (< 0.028)
[2023-10-13 21:46] LABS: Troponin I 0.347 ng/mL (< 0.028)
[2023-10-14 04:20] LABS: #Basophils 0.04 10x3/uL (0.0-0.2); %Basophils 0.4 % (0.0-1.0); %Eosinophils 7.9 % (0.0-10.0); %Lymphocytes 25.4 % (21.0-51.0); %Monocytes 7.1 % (0.0-10.0); %Neutrophils 58.8 % (42.0-75.0); Hematocrit 25.4 % (36.0-47.0); Hemoglobin 8.2 g/dL (12.0-16.0); Mean Corpuscular HGB CONC 32.3 g/dL (32.0-36.0); Mean Corpuscular Hemoglobin 29.7 pg (27.0-31.0); Mean Platelet Volume 10.9 fL (7.4-10.4); Platelet Count 330 10x3/uL (130-400); RBC Distribution Width 18.6 % (11.5-14.5); Red Blood Cell (RBC) Count 2.76 mill/uL (4.20-5.40)
[2023-10-14 04:39] LABS: Anion Gap 10 mmol/L (10-20); BUN (Urea Nitrogen) 7 mg/dL (9.8-20.1); Calc. Creatinine Clearance 73 mL/min (70-130); Calcium 7.5 mg/dL (7.8-10.44); Carbon Dioxide 20 mmol/L (23-31); Chloride 113 mmol/L (98-107); Estimated GFR 101; Glucose 79 mg/dL (80-115); Magnesium 1.6 mg/dL (1.6-2.6); Potassium 3.4 mmol/L (3.5-5.1); Sodium 140 mmol/L (136-145)
[2023-10-14] MEDS: Magnesium 2 GM/50 ML(in water) 2 GM in Premix 1 BAG IVPB SCH (07:49)
[2023-10-14] MEDS ORDERED: Calcium Gluconate 100 MG/ML 10 ML IVPB SCH (08:00)
[2023-10-14] MEDS: Potassium Chloride 20 MEQ TAB PO SCH ×2 (08:29→10:45)
[2023-10-14] MEDS: Acetaminophen/Codeine 30-300mg Tablet PO PRN (08:37)
[2023-10-14] MEDS: Nicotine 7 MG PATCH TOP SCH (10:43)
[2023-10-14] MEDS: Communication Order-Pharmacy FS ONE (10:50)
[2023-10-14 11:32] VITALS: BMI 20.4
[2023-10-14] MEDS: Carvedilol 3.125 MG TAB PO SCH (16:54)
[2023-10-14] MEDS: Nitroglycerin 50 MG/250 ML BOT 250 ML IVPB SCH (17:17)
[2023-10-15] MEDS: Morphine 2 MG/ML VIAL SLOW IVP PRN ×2 (02:59→20:29)
[2023-10-15 04:08] LABS: #Basophils 0.03 10x3/uL (0.0-0.2); %Basophils 0.4 % (0.0-1.0); %Eosinophils 7.9 % (0.0-10.0); %Lymphocytes 24.3 % (21.0-51.0); %Monocytes 7.2 % (0.0-10.0); %Neutrophils 59.8 % (42.0-75.0); Hematocrit 38.3 % (36.0-47.0); Hemoglobin 12.5 g/dL (12.0-16.0); Mean Corpuscular HGB CONC 32.6 g/dL (32.0-36.0); Mean Corpuscular Hemoglobin 28.9 pg (27.0-31.0); Mean Corpuscular Volume 88.5 fL (78.0-98.0); Mean Platelet Volume 11.1 fL (7.4-10.4); Platelet Count 234 10x3/uL (130-400); Red Blood Cell (RBC) Count 4.33 mill/uL (4.20-5.40)
[2023-10-15 04:17] LABS: INR-International Normal Ratio 1.1; Prothrombin Time 14.1 sec (12.0-14.7)
[2023-10-15 04:19] LABS: PTT 53.4 sec (22.9-36.1)
[2023-10-15 04:20] LABS: Anion Gap 14 mmol/L (10-20); BUN (Urea Nitrogen) 6 mg/dL (9.8-20.1); Calc. Creatinine Clearance 72 mL/min (70-130); Calcium 7.9 mg/dL (7.8-10.44); Carbon Dioxide 22 mmol/L (23-31); Chloride 111 mmol/L (98-107); Estimated GFR 100; Glucose 116 mg/dL (80-115); Magnesium 1.4 mg/dL (1.6-2.6); Potassium 4.1 mmol/L (3.5-5.1); Sodium 143 mmol/L (136-145)
[2023-10-15] MEDS ORDERED: Lidocaine 1% MPF 2 ML VIAL ONE (06:11)
[2023-10-15] MEDS ORDERED: EPINEPHrine 1 MG/ML VIAL ONE (06:17)
[2023-10-15] MEDS ORDERED: Dexamethasone 4 mg/ml Vial ONE (06:17)
[2023-10-15] MEDS ORDERED: PHENYLEPHRINE-NS 100 MCG/ML 10 ML SYRINGE ONE ×2 (06:18→08:24)
[2023-10-15] MEDS ORDERED: Bupivacaine PF 0.5% 30 ML VIAL ONE (06:18)
[2023-10-15] MEDS ORDERED: Albumin 5% 0 ML ONE (06:18)
[2023-10-15] MEDS: Magnesium Sulfate In Water 4 GM in Premix 1 BAG IVPB SCH (06:45)
[2023-10-15] MEDS ORDERED: Heparin 10,000 UNITS/1 ML VIAL 30,000 UNITS in Sodium Chloride 0.9% 1,000 ML FS SCH (07:00)
[2023-10-15] MEDS ORDERED: Isoflurane INH ANEST 250 ML BOTTLE ONE (07:09)
[2023-10-15] MEDS ORDERED: PROPOFOL 20 ML ONE (07:12)
[2023-10-15] MEDS ORDERED: Fentanyl 250 MCG/5 ML VIAL ONE (07:12)
[2023-10-15] MEDS ORDERED: Midazolam HCl 2 mg/2 ml Vial ONE ×2 (07:14→12:42)
[2023-10-15] MEDS ORDERED: ePHEDrine Sulfate 50 MG/10 ML VIAL ONE (07:20)
[2023-10-15] MEDS ORDERED: Vancomycin 1 GM VIAL ONE (07:41)
[2023-10-15] MEDS ORDERED: Papaverine 60 MG/2 ML VIAL ONE (07:41)
[2023-10-15] MEDS ORDERED: Thrombin 5000 UNITS/5 ML VIAL ONE (07:41)
[2023-10-15] MEDS ORDERED: Mannitol 12.5 GM/50 ML ONE (07:41)
[2023-10-15] MEDS ORDERED: Calcium Chloride 1 GM/10 ML Abboject SYRINGE ONE (07:41)
[2023-10-15] MEDS ORDERED: Potassium Chloride 60 mEq (30 mL) VIAL ONE (07:41)
[2023-10-15] MEDS ORDERED: Sodium Bicarb 50 mEq/50 ML VIAL ONE (07:41)
[2023-10-15] MEDS ORDERED: Cardioplegic Soln 1,000 ML BAG ONE (07:41)
[2023-10-15] MEDS ORDERED: Heparin 30,000 units/30 ml VIAL ONE (07:41)
[2023-10-15] MEDS ORDERED: Lidocaine 2% PF 100 mg/5 ml Syringe ONE (07:41)
[2023-10-15] MEDS ORDERED: Heparin 5,000 UNITS/ML VIAL ONE (07:41)
[2023-10-15] MEDS ORDERED: Aminocaproic Acid 5 GM/20 ML VIAL ONE ×2 (07:41→08:24)
[2023-10-15] MEDS ORDERED: Protamine Sulfate 250 MG/25 ML VIAL ONE (07:41)
[2023-10-15] MEDS ORDERED: Magnesium 5 GM/10 ML VIAL ONE (07:41)
[2023-10-15] MEDS ORDERED: CEFAZOLIN 1 GM VIAL ONE ×2 (07:55→11:26)
[2023-10-15] MEDS ORDERED: Norepinephrine 4 MG/4 ML VIAL ONE (08:24)
[2023-10-15] MEDS ORDERED: Esmolol 100 MG/10 ML VIAL ONE (08:24)
[2023-10-15] MEDS ORDERED: Lidocaine 1% PF 5 ML VIAL ONE (08:24)
[2023-10-15] MEDS ORDERED: Rocuronium Bromide 10 MG/ML (10ML VIAL) ONE (08:24)
[2023-10-15] MEDS ORDERED: Promethazine HCl 25 MG/ML VIAL IM PRN (12:36)
[2023-10-15] MEDS ORDERED: niCARdipine 25 MG in Sodium Chloride 0.9% 250 ML 250 ML IVPB PRN (12:36)
[2023-10-15] MEDS ORDERED: Mag-Al 1200 mg/1200 mg/30 ML UDCUP PO PRN (12:36)
[2023-10-15] MEDS ORDERED: Bisacodyl 10 MG SUPP PR PRN (12:36)
[2023-10-15] MEDS ORDERED: Albumin 5% 12.5 GM (250 mL) BOT IVPB PRN (12:36)
[2023-10-15] MEDS ORDERED: hydrALAZINE 20 MG/ML VIAL SLOW IVP PRN (12:36)
[2023-10-15] MEDS ORDERED: Glucagon 1 MG/ML KIT SC PRN (13:15)
[2023-10-15] MEDS ORDERED: INSULIN REGULAR IN 0.9 % NACL 100 UNITS in Premix 1 BAG IVPB SCH (13:15)
[2023-10-15] MEDS ORDERED: Dextrose 5% in Water 1,000 ML IV PRN (13:15)
[2023-10-15] MEDS ORDERED: Dextrose 50% Abboject 50 ML SYRINGE SLOW IVP PRN (13:15)
[2023-10-15 13:19] LABS: Base Excess (BEa) -3.7 mEq/L (-2.0 to +3.0); CO2 Tension 28.5 mmHg (35.0-45.0); Calcium, Ionized (arterial) 1.04 mmol/L (1.12-1.30); Hematocrit-ABG 41 % (36.0-47.0); Potassium - ABG Lab 4.51 mmol/L (3.70-5.30); Puncture Site Arterial Line; pH, Arterial 7.442 (7.35-7.45)
[2023-10-15 13:20] LABS: ALV-art Gradient 309.175 mmHg (0-20)
[2023-10-15 13:20] LABS: Hematocrit 40.5 % (36.0-47.0); Hemoglobin 13.6 g/dL (12.0-16.0); Mean Corpuscular HGB CONC 33.6 g/dL (32.0-36.0); Mean Corpuscular Hemoglobin 28.2 pg (27.0-31.0); Mean Corpuscular Volume 83.9 fL (78.0-98.0); Platelet Count 309 10x3/uL (130-400); RBC Distribution Width 19.5 % (11.5-14.5); Red Blood Cell (RBC) Count 4.83 mill/uL (4.20-5.40)
[2023-10-15] MEDS: Albumin 5% 12.5 GM (250 mL) BOT IVPB PRN (13:25)
[2023-10-15] MEDS: D5 1/2 NS w/20 mEq KCL 1,000 ML IV SCH (13:32)
[2023-10-15 13:36] LABS: INR-International Normal Ratio 1.2; Prothrombin Time 14.8 sec (12.0-14.7)
[2023-10-15] MEDS: Ipratropium/Albuterol 3 ML NEB NEB SCH (13:36)
[2023-10-15] MEDS: Magnesium 2 GM/50 ML(in water) 2 GM in Premix 1 BAG IVPB SCH (13:36)
[2023-10-15 13:37] LABS: PTT 32.3 sec (22.9-36.1)
[2023-10-15] MEDS: Insulin Regular, Human 100 UNIT/ML 10 ML VIAL SC PRN (13:37)
[2023-10-15] MEDS: Post-Op Insulin Drip Protocol IVPB ONE (13:38)
[2023-10-15 14:10] LABS: Anisocytosis SLIGHT = 6-15 cells HPF (0-5); Band 3 % (5-11); Eosinophils 3 % (0-10); Large Platelets 3.4 % (0-5); Lymphocytes 2 % (21-51); Monocytes 2 % (0-10); Neutrophil 91 % (42-75); Ovalocytes SLIGHT = 2-5 cells HPF (0-1); Platelet Adequacy Comment Platelets Normal; Poikilocytosis SLIGHT = 6-15 cells HPF (0-5); Polychromasia SLIGHT = 2-3 cells HPF (0-2)
[2023-10-15 14:56] LABS: Anion Gap 15 mmol/L (10-20); BUN (Urea Nitrogen) 7 mg/dL (9.8-20.1); Calc. Creatinine Clearance 75 mL/min (70-130); Carbon Dioxide 21 mmol/L (23-31); Chloride 115 mmol/L (98-107); Estimated GFR 101; Glucose 141 mg/dL (80-115); Potassium 4.7 mmol/L (3.5-5.1); Sodium 146 mmol/L (136-145)
[2023-10-15] MEDS: CEFAZOLIN 2 GM in Sodium Chloride 0.9% 100 ML IVPB SCH (16:20)
[2023-10-15] MEDS: NOREPINEPHRINE 8 MG/250 ML-D5W 250 ML IVPB PRN (17:34)
[2023-10-15 18:32] LABS: Hematocrit 35.2 % (36.0-47.0); Hemoglobin 11.8 g/dL (12.0-16.0)
[2023-10-15 18:48] LABS: Potassium 4.2 mmol/L (3.5-5.1)
[2023-10-15] MEDS: Ondansetron PF 4 MG/2 ML Vial IVP PRN (20:28)
[2023-10-15 20:46] LABS: Base Excess (BEa) -1.6 mEq/L (-2.0 to +3.0); CO2 Tension 33.7 mmHg (35.0-45.0); Calcium, Ionized (arterial) 1.01 mmol/L (1.12-1.30); Carboxyhemoglobin (COHb) 0.9 gm% (0.0-3.0); Hematocrit-ABG 35 % (36.0-47.0); Potassium - ABG Lab 4.06 mmol/L (3.70-5.30); Puncture Site LINE; pH, Arterial 7.433 (7.35-7.45)
[2023-10-15 20:47] LABS: ALV-art Gradient 84.775 mmHg (0-20)
[2023-10-15] MEDS: fentaNYL 50 mcg/mL 1 mL Vial SLOW IVP PRN (21:14)
[2023-10-15] MEDS: traMADol HCl 50 MG TAB PO PRN (21:40)
[2023-10-15] MEDS: Famotidine/PF 20 mg/2ml Vial SLOW IVP SCH (23:18)
[2023-10-16] MEDS: fentaNYL 50 mcg/mL 1 mL Vial SLOW IVP PRN (01:19)
[2023-10-16 05:08] LABS: #Basophils Less than 0.03 10x3/uL (0.0-0.2); #Eosinphils Less than 0.03 10x3/uL (0.0-0.7); %Basophils 0.2 % (0.0-1.0); %Eosinophils 0.2 % (0.0-10.0); %Lymphocytes 12.1 % (21.0-51.0); %Monocytes 8.3 % (0.0-10.0); %Neutrophils 78.8 % (42.0-75.0); Hematocrit 26.7 % (36.0-47.0); Hemoglobin 8.8 g/dL (12.0-16.0); Mean Corpuscular Hemoglobin 28.3 pg (27.0-31.0); Mean Corpuscular Volume 85.9 fL (78.0-98.0); Mean Platelet Volume 11.3 fL (7.4-10.4); Platelet Count 217 10x3/uL (130-400); RBC Distribution Width 19.9 % (11.5-14.5); Red Blood Cell (RBC) Count 3.11 mill/uL (4.20-5.40)
[2023-10-16] MEDS: Guaifenesin DM 100-10/5 ML UDCUP PO PRN (05:14)
[2023-10-16 05:35] LABS: Anion Gap 11 mmol/L (10-20); BUN (Urea Nitrogen) 10 mg/dL (9.8-20.1); Calc. Creatinine Clearance 73 mL/min (70-130); Calcium 6.3 mg/dL (7.8-10.44); Carbon Dioxide 21 mmol/L (23-31); Chloride 116 mmol/L (98-107); Estimated GFR 100; Glucose 104 mg/dL (80-115); Sodium 144 mmol/L (136-145)
[2023-10-16] MEDS: CALCIUM GLUC 1 GM/NS 50 ML 1 GM in Premix 1 BAG IVPB SCH (06:40)
[2023-10-16] MEDS: Potassium Chloride 20 MEQ (100 mL) BAG IVPB PRN (07:33)
[2023-10-16] MEDS: Aspirin Chewable 81 MG TAB PO SCH (07:43)
[2023-10-16] MEDS: Magnesium 2 GM/50 ML(in water) 2 GM in Premix 1 BAG IVPB SCH (08:12)
[2023-10-16] MEDS: Cyclobenzaprine 10 MG TAB PO SCH (08:12)
[2023-10-16] MEDS: Lidocaine 4% Patch TD SCH (10:23)
[2023-10-16 11:33] LABS: Actual Bicarbonate (HCO3a) 20.2 mEq/L (22-28); Analyzer IN Cardio OR; Base Excess (BEa) -6.2 mEq/L (-2.0 to +3.0); CO2 Tension 43.7 mmHg (35.0-45.0); Calcium, Ionized (arterial) 1.12 mmol/L (1.12-1.30); Carboxyhemoglobin (COHb) 0.3 gm% (0.0-3.0); Hematocrit-ABG 30 % (36.0-47.0); Hemoglobin (Hb) 10.2 g/dL (12.0-16.0); O2 Tension (PaO2), arterial 176.9 mmHg (> 80.0); Potassium - ABG Lab 4.15 mmol/L (3.70-5.30); pH, Arterial 7.282 (7.35-7.45)
[2023-10-16 11:33] LABS: Actual Bicarbonate (HCO3a) 27.3 mEq/L (22-28); Analyzer IN Cardio OR; Base Excess (BEa) 2.4 mEq/L (-2.0 to +3.0); CO2 Tension 43.7 mmHg (35.0-45.0); Calcium, Ionized (arterial) 1.02 mmol/L (1.12-1.30); Carboxyhemoglobin (COHb) 0.2 gm% (0.0-3.0); Hematocrit-ABG 25 % (36.0-47.0); Hemoglobin (Hb) 8.6 g/dL (12.0-16.0); O2 Tension (PaO2), arterial 497.3 mmHg (> 80.0); Potassium - ABG Lab 5.43 mmol/L (3.70-5.30); pH, Arterial 7.413 (7.35-7.45)
[2023-10-16 11:33] LABS: Actual Bicarbonate (HCO3a) 22.4 mEq/L (22-28); Analyzer IN Cardio OR; Base Excess (BEa) -2.4 mEq/L (-2.0 to +3.0); CO2 Tension 38.8 mmHg (35.0-45.0); Calcium, Ionized (arterial) 1.01 mmol/L (1.12-1.30); Hematocrit-ABG 31 % (36.0-47.0); Hemoglobin (Hb) 10.7 g/dL (12.0-16.0); O2 Tension (PaO2), arterial 80.3 mmHg (> 80.0); Potassium - ABG Lab 4.85 mmol/L (3.70-5.30)
[2023-10-16 11:34] LABS: Actual Bicarbonate (HCO3a) 21.8 mEq/L (22-28); Analyzer IN Cardio OR; Base Excess (BEa) -2.8 mEq/L (-2.0 to +3.0); CO2 Tension 36.9 mmHg (35.0-45.0); Calcium, Ionized (arterial) 1.12 mmol/L (1.12-1.30); Carboxyhemoglobin (COHb) 0.3 gm% (0.0-3.0); Hematocrit-ABG 28 % (36.0-47.0); Hemoglobin (Hb) 9.4 g/dL (12.0-16.0); O2 Tension (PaO2), arterial 145.7 mmHg (> 80.0); Potassium - ABG Lab 3.86 mmol/L (3.70-5.30)
[2023-10-16 11:34] LABS: Actual Bicarbonate (HCO3a) 25.2 mEq/L (22-28); Analyzer IN Cardio OR; Base Excess (BEa) -0.5 mEq/L (-2.0 to +3.0); CO2 Tension 46.3 mmHg (35.0-45.0); Calcium, Ionized (arterial) 0.94 mmol/L (1.12-1.30); Carboxyhemoglobin (COHb) 0.5 gm% (0.0-3.0); Hematocrit-ABG 23 % (36.0-47.0); Hemoglobin (Hb) 7.7 g/dL (12.0-16.0); O2 Tension (PaO2), arterial 516.5 mmHg (> 80.0); Potassium - ABG Lab 5.73 mmol/L (3.70-5.30); pH, Arterial 7.353 (7.35-7.45)
[2023-10-16 11:34] LABS: Actual Bicarbonate (HCO3a) 23.4 mEq/L (22-28); Analyzer IN Cardio OR; Base Excess (BEa) -3.1 mEq/L (-2.0 to +3.0); CO2 Tension 49.5 mmHg (35.0-45.0); Calcium, Ionized (arterial) 1.19 mmol/L (1.12-1.30); Carboxyhemoglobin (COHb) 0.3 gm% (0.0-3.0); Hematocrit-ABG 25 % (36.0-47.0); Hemoglobin (Hb) 8.5 g/dL (12.0-16.0); O2 Tension (PaO2), arterial 473.6 mmHg (> 80.0); Potassium - ABG Lab 5.72 mmol/L (3.70-5.30); pH, Arterial 7.292 (7.35-7.45)
[2023-10-16 11:34] LABS: Analyzer IN Cardio OR; Base Excess (BEa) -3.2 mEq/L (-2.0 to +3.0); CO2 Tension 47.6 mmHg (35.0-45.0); Calcium, Ionized (arterial) 0.94 mmol/L (1.12-1.30); Carboxyhemoglobin (COHb) 0.5 gm% (0.0-3.0); Hematocrit-ABG 21 % (36.0-47.0); Potassium - ABG Lab 5.44 mmol/L (3.70-5.30); pH, Arterial 7.302 (7.35-7.45)
[2023-10-16 11:36] LABS: Puncture Site Arterial Line
[2023-10-16 11:36] LABS: Puncture Site Arterial Line
[2023-10-16 11:36] LABS: Puncture Site Arterial Line
[2023-10-16 11:37] LABS: Puncture Site Arterial Line
[2023-10-16 11:37] LABS: Puncture Site Arterial Line
[2023-10-16 11:37] LABS: Puncture Site Arterial Line
[2023-10-16 11:38] LABS: Puncture Site Arterial Line
[2023-10-16] MEDS: Pantoprazole DR 40 MG TAB PO SCH ×2 (11:50→20:24)
[2023-10-16] MEDS ORDERED: Insulin Glargine 30 UNITS/0.3 ML VIAL SC PRN (13:13)
[2023-10-16] MEDS: ALPRAZolam 0.5 MG TAB PO PRN (13:53)
[2023-10-16] MEDS: Transdermal Patch Removal TOP SCH (20:04)
[2023-10-16] MEDS: Acetaminophen 325 MG TAB PO PRN (20:23)
[2023-10-17] MEDS: traMADol HCl 50 MG TAB PO PRN (03:22)
[2023-10-17 06:42] LABS: Anion Gap 12 mmol/L (10-20); BUN (Urea Nitrogen) 14 mg/dL (9.8-20.1); Calc. Creatinine Clearance 75 mL/min (70-130); Calcium 7.7 mg/dL (7.8-10.44); Carbon Dioxide 22 mmol/L (23-31); Chloride 110 mmol/L (98-107); Estimated GFR 101; Glucose 112 mg/dL (80-115); Magnesium 2.1 mg/dL (1.6-2.6); Sodium 139 mmol/L (136-145)
[2023-10-17 06:49] LABS: #Basophils 0.04 10x3/uL (0.0-0.2); %Basophils 0.2 % (0.0-1.0); %Eosinophils 1.4 % (0.0-10.0); %Lymphocytes 6.3 % (21.0-51.0); %Neutrophils 83.5 % (42.0-75.0); Hematocrit 30.3 % (36.0-47.0); Hemoglobin 9.7 g/dL (12.0-16.0); Mean Corpuscular Hemoglobin 28.5 pg (27.0-31.0); Mean Corpuscular Volume 89.1 fL (78.0-98.0); Mean Platelet Volume 12.1 fL (7.4-10.4); Platelet Count 255 10x3/uL (130-400); RBC Distribution Width 20.3 % (11.5-14.5)
[2023-10-17 06:54] LABS: Hematocrit 30.6 % (36.0-47.0); Hemoglobin 9.9 g/dL (12.0-16.0); Mean Corpuscular HGB CONC 32.4 g/dL (32.0-36.0); Mean Corpuscular Hemoglobin 28.3 pg (27.0-31.0); Mean Corpuscular Volume 87.4 fL (78.0-98.0); Mean Platelet Volume 11.6 fL (7.4-10.4); Platelet Count 237 10x3/uL (130-400); RBC Distribution Width 20.3 % (11.5-14.5)
[2023-10-17 07:24] LABS: Anion Gap 10 mmol/L (10-20); BUN (Urea Nitrogen) 14 mg/dL (9.8-20.1); Calc. Creatinine Clearance 76 mL/min (70-130); Calcium 7.8 mg/dL (7.8-10.44); Carbon Dioxide 22 mmol/L (23-31); Chloride 111 mmol/L (98-107); Estimated GFR 101; Glucose 118 mg/dL (80-115); Phosphorus 2.2 mg/dL (2.3-4.7); Potassium 4.6 mmol/L (3.5-5.1); Sodium 138 mmol/L (136-145)
[2023-10-17] MEDS ORDERED: Electrolyte Replacement Protocol FS PRN (08:15)
[2023-10-17] MEDS: Sodium Phosphate 15 MMOL in Sodium Chloride 0.9% 250 ML 250 ML IVPB SCH (09:51)
[2023-10-17] MEDS: Electrolyte Replacement Protocol 1 EACH FS ONE (19:21)
[2023-10-18 05:01] LABS: #Basophils Less than 0.03 10x3/uL (0.0-0.2); %Basophils 0.1 % (0.0-1.0); %Eosinophils 1.9 % (0.0-10.0); %Lymphocytes 10.2 % (21.0-51.0); %Monocytes 7.5 % (0.0-10.0); %Neutrophils 79.6 % (42.0-75.0); Hematocrit 27.5 % (36.0-47.0); Mean Corpuscular HGB CONC 32.7 g/dL (32.0-36.0); Mean Corpuscular Hemoglobin 28.8 pg (27.0-31.0); Mean Corpuscular Volume 87.9 fL (78.0-98.0); Mean Platelet Volume 11.2 fL (7.4-10.4); Platelet Count 248 10x3/uL (130-400); RBC Distribution Width 19.5 % (11.5-14.5); Red Blood Cell (RBC) Count 3.13 mill/uL (4.20-5.40)
[2023-10-18 05:23] LABS: Phosphorus 2.5 mg/dL (2.3-4.7)
[2023-10-18 05:24] LABS: Anion Gap 12 mmol/L (10-20); BUN (Urea Nitrogen) 13 mg/dL (9.8-20.1); Calc. Creatinine Clearance 82 mL/min (70-130); Calcium 7.7 mg/dL (7.8-10.44); Carbon Dioxide 23 mmol/L (23-31); Chloride 108 mmol/L (98-107); Estimated GFR 103; Glucose 91 mg/dL (80-115); Magnesium 1.7 mg/dL (1.6-2.6); Sodium 139 mmol/L (136-145)
[2023-10-18] MEDS: Magnesium 2 GM/50 ML(in water) 2 GM in Premix 1 BAG IVPB SCH (08:35)
[2023-10-18] MEDS: Carvedilol 3.125 MG TAB PO SCH ×2 (09:52→17:28)
[2023-10-18] MEDS: Albumin 25% 25 GM (100 mL) BOT IVPB SCH (11:02)
[2023-10-18] MEDS: Furosemide 20 MG (2 mL) VIAL SLOW IVP SCH (11:03)
[2023-10-18] MEDS: Clopidogrel Bisulfate 75 MG TAB PO SCH (11:03)
[2023-10-18] MEDS: Megestrol Acetate 800 MG/20 ML UDCUP PO SCH (11:03)
[2023-10-18] MEDS: Furosemide 20 MG TAB PO SCH (14:15)
[2023-10-18] MEDS: HYDROcodone/Acetaminophen 7.5/325 mg Tablet PO PRN (15:28)
[2023-10-18] MEDS: Budesonide 0.25 MG/2 ML NEB INH SCH (18:08)
[2023-10-19 05:33] LABS: #Basophils Less than 0.03 10x3/uL (0.0-0.2); %Basophils 0.1 % (0.0-1.0); %Lymphocytes 10.7 % (21.0-51.0); %Monocytes 9.6 % (0.0-10.0); %Neutrophils 76.1 % (42.0-75.0); Hematocrit 25.1 % (36.0-47.0); Hemoglobin 8.2 g/dL (12.0-16.0); Mean Corpuscular HGB CONC 32.7 g/dL (32.0-36.0); Mean Corpuscular Hemoglobin 28.3 pg (27.0-31.0); Mean Corpuscular Volume 86.6 fL (78.0-98.0); Mean Platelet Volume 11.3 fL (7.4-10.4); Platelet Count 280 10x3/uL (130-400)
[2023-10-19 06:36] LABS: Anion Gap 14 mmol/L (10-20); BUN (Urea Nitrogen) 12 mg/dL (9.8-20.1); Calc. Creatinine Clearance 88 mL/min (70-130); Calcium 8.3 mg/dL (7.8-10.44); Carbon Dioxide 23 mmol/L (23-31); Chloride 104 mmol/L (98-107); Estimated GFR 101; Glucose 101 mg/dL (80-115); Magnesium 1.5 mg/dL (1.6-2.6); Sodium 138 mmol/L (136-145)
[2023-10-19 06:37] LABS: Phosphorus 2.8 mg/dL (2.3-4.7)
[2023-10-19] MEDS: Magnesium 2 GM/50 ML(in water) 2 GM in Premix 1 BAG IVPB SCH ×2 (07:48→09:23)
[2023-10-19] MEDS ORDERED: Polyethylene Glycol 3350 17 GM Packet PO PRN (08:54)
[2023-10-19] MEDS: Potassium Chloride 20 MEQ TAB PO SCH (09:19)
[2023-10-19] MEDS: Amiodarone 200 MG TAB PO SCH (09:19)
[2023-10-19] MEDS: Clopidogrel Bisulfate 75 MG TAB PO SCH (09:20)
[2023-10-19] MEDS: Amiodarone 150 MG in Dextrose 5% in Water 100 ML IVPB SCH (09:20)
[2023-10-19] MEDS: Empagliflozin 10 MG TAB PO SCH (09:21)
[2023-10-19] MEDS: Megestrol Acetate 800 MG/20 ML UDCUP PO SCH (09:22)
[2023-10-19] MEDS: Carvedilol 6.25 MG TAB PO SCH (18:52)
[2023-10-19] MEDS: Bisacodyl 5 MG TAB PO PRN (20:08)
[2023-10-19] MEDS: Senokot S 8.6-50 MG TAB PO SCH (20:08)
[2023-10-20 06:37] LABS: #Basophils Less than 0.03 10x3/uL (0.0-0.2); %Basophils 0.2 % (0.0-1.0); %Eosinophils 3.9 % (0.0-10.0); %Lymphocytes 10.4 % (21.0-51.0); %Monocytes 11.4 % (0.0-10.0); %Neutrophils 73.5 % (42.0-75.0); Hemoglobin 8.7 g/dL (12.0-16.0); Mean Corpuscular HGB CONC 33.5 g/dL (32.0-36.0); Mean Corpuscular Hemoglobin 28.1 pg (27.0-31.0); Mean Corpuscular Volume 83.9 fL (78.0-98.0); Mean Platelet Volume 10.9 fL (7.4-10.4); Platelet Count 299 10x3/uL (130-400); RBC Distribution Width 18.5 % (11.5-14.5)
[2023-10-20 06:57] LABS: Phosphorus 3.1 mg/dL (2.3-4.7)
[2023-10-20 07:23] LABS: Anion Gap 13 mmol/L (10-20); BUN (Urea Nitrogen) 12 mg/dL (9.8-20.1); Calc. Creatinine Clearance 87 mL/min (70-130); Calcium 8.4 mg/dL (7.8-10.44); Carbon Dioxide 23 mmol/L (23-31); Chloride 107 mmol/L (98-107); Estimated GFR 101; Glucose 94 mg/dL (80-115); Magnesium 1.9 mg/dL (1.6-2.6); Potassium 2.5 mmol/L (3.5-5.1); Sodium 140 mmol/L (136-145)
[2023-10-20] MEDS: Potassium Chloride 20 MEQ TAB PO SCH ×2 (08:19→21:19)
[2023-10-20] MEDS: Sacubitril 24MG/Valsartan 26 MG TAB PO SCH (08:23)
[2023-10-20] MEDS: Magnesium 2 GM/50 ML(in water) 2 GM in Premix 1 BAG IVPB SCH (08:24)
[2023-10-20 12:30] LABS: Potassium 2.9 mmol/L (3.5-5.1)
[2023-10-20 20:15] LABS: Potassium 2.8 mmol/L (3.5-5.1)
[2023-10-21 04:02] LABS: #Basophils 0.03 10x3/uL (0.0-0.2); %Basophils 0.3 % (0.0-1.0); %Eosinophils 6.4 % (0.0-10.0); %Lymphocytes 16.1 % (21.0-51.0); %Monocytes 13.5 % (0.0-10.0); %Neutrophils 63.1 % (42.0-75.0); Hematocrit 26.2 % (36.0-47.0); Hemoglobin 8.7 g/dL (12.0-16.0); Mean Corpuscular HGB CONC 33.2 g/dL (32.0-36.0); Mean Corpuscular Hemoglobin 27.7 pg (27.0-31.0); Mean Corpuscular Volume 83.4 fL (78.0-98.0); Mean Platelet Volume 10.7 fL (7.4-10.4); Platelet Count 365 10x3/uL (130-400); RBC Distribution Width 18.6 % (11.5-14.5); Red Blood Cell (RBC) Count 3.14 mill/uL (4.20-5.40)
[2023-10-21 04:47] LABS: Anion Gap 13 mmol/L (10-20); BUN (Urea Nitrogen) 10 mg/dL (9.8-20.1); Calc. Creatinine Clearance 81 mL/min (70-130); Calcium 8.1 mg/dL (7.8-10.44); Carbon Dioxide 22 mmol/L (23-31); Chloride 108 mmol/L (98-107); Estimated GFR 99; Glucose 103 mg/dL (80-115); Magnesium 1.8 mg/dL (1.6-2.6); Phosphorus 3.3 mg/dL (2.3-4.7); Potassium 3.8 mmol/L (3.5-5.1); Sodium 139 mmol/L (136-145)
[2023-10-21] MEDS: Magnesium 2 GM/50 ML(in water) 2 GM in Premix 1 BAG IVPB SCH (07:35)
[2023-10-21] MEDS: Magnesium Oxide 400 MG TAB PO SCH (09:44)
[2023-10-22 06:48] LABS: #Basophils 0.04 10x3/uL (0.0-0.2); %Basophils 0.3 % (0.0-1.0); %Eosinophils 6.5 % (0.0-10.0); %Lymphocytes 15.9 % (21.0-51.0); %Monocytes 10.5 % (0.0-10.0); %Neutrophils 66.1 % (42.0-75.0); Hematocrit 30.6 % (36.0-47.0); Hemoglobin 9.9 g/dL (12.0-16.0); Mean Corpuscular HGB CONC 32.4 g/dL (32.0-36.0); Mean Corpuscular Hemoglobin 28.6 pg (27.0-31.0); Mean Corpuscular Volume 88.4 fL (78.0-98.0); Mean Platelet Volume 10.7 fL (7.4-10.4); Platelet Count 518 10x3/uL (130-400); RBC Distribution Width 19.1 % (11.5-14.5); Red Blood Cell (RBC) Count 3.46 mill/uL (4.20-5.40)
[2023-10-22 07:05] LABS: Phosphorus 3.6 mg/dL (2.3-4.7)
[2023-10-22 07:10] LABS: Anion Gap 15 mmol/L (10-20); BUN (Urea Nitrogen) 10 mg/dL (9.8-20.1); Calc. Creatinine Clearance 68 mL/min (70-130); Calcium 8.6 mg/dL (7.8-10.44); Carbon Dioxide 20 mmol/L (23-31); Chloride 106 mmol/L (98-107); Estimated GFR 98; Glucose 93 mg/dL (80-115); Magnesium 1.8 mg/dL (1.6-2.6); Potassium 3.7 mmol/L (3.5-5.1); Sodium 137 mmol/L (136-145)
[2023-10-22] MEDS: Amiodarone 200 MG TAB PO SCH (09:34)
[2023-10-22] MEDS: Magnesium 2 GM/50 ML(in water) 2 GM in Premix 1 BAG IVPB SCH (09:36)
[2023-10-23 05:28] LABS: #Basophils 0.05 10x3/uL (0.0-0.2); %Basophils 0.5 % (0.0-1.0); %Eosinophils 5.2 % (0.0-10.0); %Lymphocytes 15.9 % (21.0-51.0); %Monocytes 9.2 % (0.0-10.0); %Neutrophils 68.3 % (42.0-75.0); Hematocrit 29.3 % (36.0-47.0); Hemoglobin 9.6 g/dL (12.0-16.0); Mean Corpuscular HGB CONC 32.8 g/dL (32.0-36.0); Mean Corpuscular Hemoglobin 28.3 pg (27.0-31.0); Mean Corpuscular Volume 86.4 fL (78.0-98.0); Mean Platelet Volume 10.4 fL (7.4-10.4); Platelet Count 569 10x3/uL (130-400); RBC Distribution Width 18.9 % (11.5-14.5); Red Blood Cell (RBC) Count 3.39 mill/uL (4.20-5.40)
[2023-10-23 05:58] LABS: Anion Gap 16 mmol/L (10-20); BUN (Urea Nitrogen) 12 mg/dL (9.8-20.1); Calc. Creatinine Clearance 67 mL/min (70-130); Calcium 8.4 mg/dL (7.8-10.44); Carbon Dioxide 21 mmol/L (23-31); Chloride 108 mmol/L (98-107); Estimated GFR 97; Glucose 103 mg/dL (80-115); Potassium 3.5 mmol/L (3.5-5.1); Sodium 141 mmol/L (136-145)
[2023-10-23] MEDS: Potassium Chloride 20 MEQ TAB PO SCH (08:48)
[2023-10-23 10:45] VITALS: BMI 21.2
[2023-10-23] MEDS: Carvedilol 6.25 MG TAB PO SCH (14:54)
[2023-10-23 18:23] LABS: Potassium 4.6 mmol/L (3.5-5.1)
[2023-10-24 04:59] LABS: #Basophils 0.04 10x3/uL (0.0-0.2); %Basophils 0.4 % (0.0-1.0); %Eosinophils 5.6 % (0.0-10.0); %Lymphocytes 15.4 % (21.0-51.0); %Neutrophils 67.7 % (42.0-75.0); Hematocrit 29.2 % (36.0-47.0); Hemoglobin 9.5 g/dL (12.0-16.0); Mean Corpuscular HGB CONC 32.5 g/dL (32.0-36.0); Mean Corpuscular Hemoglobin 27.8 pg (27.0-31.0); Mean Corpuscular Volume 85.4 fL (78.0-98.0); Mean Platelet Volume 10.4 fL (7.4-10.4); Platelet Count 638 10x3/uL (130-400); Red Blood Cell (RBC) Count 3.42 mill/uL (4.20-5.40)
[2023-10-24 05:18] LABS: Anion Gap 15 mmol/L (10-20); BUN (Urea Nitrogen) 14 mg/dL (9.8-20.1); Calc. Creatinine Clearance 62 mL/min (70-130); Calcium 8.5 mg/dL (7.8-10.44); Carbon Dioxide 22 mmol/L (23-31); Chloride 107 mmol/L (98-107); Estimated GFR 96; Glucose 102 mg/dL (80-115); Potassium 4.1 mmol/L (3.5-5.1); Sodium 140 mmol/L (136-145)
[2023-10-24 09:07] VITALS: BP 118/54; TEMP 98.3
[2023-11-05] MEDS ORDERED: Amiodarone 200 MG TAB PO SCH (09:00)
[2023-11-19] MEDS ORDERED: Amiodarone 200 MG TAB PO SCH (09:00)
== END 2023-10-24 11:54 | disposition home or self-care (01) | DRG 233 ==
LOC: ERS 16:55 → CCU 17:48 → 2NO 10-12 18:19 → CCU 10-13 17:37 → 2NO 10-18 17:51
PROVIDERS: ADMIT Internal Medicine; ATTEND Family Medicine
PROC: 4A023N7 Measurement of Cardiac Sampling and Pressure, Left Heart, Percutaneous Approach (ICD-10-PCS; 2023-10-11)
PROC: B2111ZZ Fluoroscopy of Multiple Coronary Arteries using Low Osmolar Contrast (ICD-10-PCS; 2023-10-11)
PROC: B2151ZZ Fluoroscopy of Left Heart using Low Osmolar Contrast (ICD-10-PCS; 2023-10-11)
PROC: 02100Z9 Bypass Coronary Artery, One Artery from Left Internal Mammary, Open Approach (ICD-10-PCS; principal; 2023-10-15)
PROC: 021109W Bypass Coronary Artery, Two Arteries from Aorta with Autologous Venous Tissue, Open Approach (ICD-10-PCS; 2023-10-15)
PROC: 06BQ4ZZ Excision of Left Saphenous Vein, Percutaneous Endoscopic Approach (ICD-10-PCS; 2023-10-15)
PROC: 06BP4ZZ Excision of Right Saphenous Vein, Percutaneous Endoscopic Approach (ICD-10-PCS; 2023-10-15)
PROC: 5A1221Z Performance of Cardiac Output, Continuous (ICD-10-PCS; 2023-10-15)
PROC: 02L70CK Occlusion of Left Atrial Appendage with Extraluminal Device, Open Approach (ICD-10-PCS; 2023-10-15)
PROC: 6A550Z2 Pheresis of Platelets, Single (ICD-10-PCS; 2023-10-15)
PROC: 30233N1 Transfusion of Nonautologous Red Blood Cells into Peripheral Vein, Percutaneous Approach (ICD-10-PCS; 2023-10-15)
PROC: 4A133R1 Monitoring of Arterial Saturation, Peripheral, Percutaneous Approach (ICD-10-PCS; 2023-10-15)
PROC: 3E033XZ Introduction of Vasopressor into Peripheral Vein, Percutaneous Approach (ICD-10-PCS; 2023-10-15)
PROC: 30233J1 Transfusion of Nonautologous Serum Albumin into Peripheral Vein, Percutaneous Approach (ICD-10-PCS; 2023-10-15)
DX: I21.4 Non-ST elevation (NSTEMI) myocardial infarction (principal); E43 Unspecified severe protein-calorie malnutrition; I50.23 Acute on chronic systolic (congestive) heart failure; J96.01 Acute respiratory failure with hypoxia; K55.1 Chronic vascular disorders of intestine; Z68.1 Body mass index [BMI] 19.9 or less, adult; I97.190 Other postprocedural cardiac functional disturbances following cardiac surgery; I11.0 Hypertensive heart disease with heart failure; I25.110 Atherosclerotic heart disease of native coronary artery with unstable angina pectoris; I24.9 Acute ischemic heart disease, unspecified; G89.29 Other chronic pain; F41.9 Anxiety disorder, unspecified; I48.0 Paroxysmal atrial fibrillation; I73.9 Peripheral vascular disease, unspecified; G47.33 Obstructive sleep apnea (adult) (pediatric); F10.10 Alcohol abuse, uncomplicated; E78.00 Pure hypercholesterolemia, unspecified; E83.51 Hypocalcemia; E83.42 Hypomagnesemia; M19.90 Unspecified osteoarthritis, unspecified site; F17.210 Nicotine dependence, cigarettes, uncomplicated; E87.8 Other disorders of electrolyte and fluid balance, not elsewhere classified; Z90.710 Acquired absence of both cervix and uterus; Z88.8 Allergy status to other drugs, medicaments and biological substances; Z79.899 Other long term (current) drug therapy; Z98.890 Other specified postprocedural states; Z98.1 Arthrodesis status; Z71.6 Tobacco abuse counseling; Z91.199 Patient's noncompliance with other medical treatment and regimen due to unspecified reason
CPT/HCPCS: 36415; 36416; 36430; 71045; 80048; 80061; 82310; 82805; 83735; 83880; 84100; 84484; 85025; 85347; 85610; 85730; 86850; 86900; 86901; 93005; 93010; 93306; 93458; 93798; 94002; 94640; 96365; 99152; 99153; A4311; C1713; C1751; C1769; C1889; J0171; J0282; J0612; J0613; J0665; J0690; J1100; J1642; J1644; J1815; J1940; J2001; J2150; J2250; J2272; J2405; J2440; J2470; J2704; J2720; J3010; J3370; J3475; J3480; J3490; J7030; J7050; J7070; J7620; J7626; P9016; P9035; P9045; P9047; Q9967; S0017

== ENCOUNTER 2023-11-07 05:43 | Inpatient (IN) | payer MEDICARE, OTHER ==
[2023-11-07] MEDS ORDERED: Morphine 4 MG/ML VIAL ONE ×2 (06:10→07:52)
[2023-11-07 06:28] LABS: Hematocrit 33.1 % (36.0-47.0); Hemoglobin 10.7 g/dL (12.0-16.0); Mean Corpuscular HGB CONC 32.3 g/dL (32.0-36.0); Mean Corpuscular Hemoglobin 28.4 pg (27.0-31.0); Mean Corpuscular Volume 87.8 fL (78.0-98.0); Mean Platelet Volume 9.9 fL (7.4-10.4); Platelet Count 728 10x3/uL (130-400); RBC Distribution Width 18.4 % (11.5-14.5); Red Blood Cell (RBC) Count 3.77 mill/uL (4.20-5.40)
[2023-11-07 06:39] LABS: ALT (SGPT) 10 U/L (8-55); AST (SGOT) 13 U/L (5-34); Albumin 3.4 g/dL (3.4-4.8); Alkaline Phosphatase 105 U/L (40-110); Anion Gap 20 mmol/L (10-20); BUN (Urea Nitrogen) 40 mg/dL (9.8-20.1); Bilirubin, Total 0.6 mg/dL (0.2-1.2); Calc. Creatinine Clearance 0 mL/min (70-130); Calcium 9.8 mg/dL (7.8-10.44); Carbon Dioxide 17 mmol/L (23-31); Chloride 102 mmol/L (98-107); Estimated GFR 35; Globulin 4.8 g/dL (2.4-3.5); Glucose 175 mg/dL (80-115); Lipase 12 U/L (8-78); Protein, Total 8.2 g/dL (5.8-8.1); Sodium 135 mmol/L (136-145)
[2023-11-07 06:53] LABS: Band 8 % (5-11); Lymphocytes 1 % (21-51); Monocytes 11 % (0-10); Neutrophil 80 % (42-75); Platelet Adequacy Comment Platelets Increased; Polychromasia SLIGHT = 2-3 cells HPF (0-2)
[2023-11-07] MEDS ORDERED: Sodium Chloride 0.9% 100 ML ONE (07:06)
[2023-11-07] MEDS ORDERED: Piperacillin/Tazobactam 3.375 GM VIAL ONE (07:06)
[2023-11-07 08:55] LABS: Hematocrit 31.9 % (36.0-47.0); Hemoglobin 10.2 g/dL (12.0-16.0); Mean Corpuscular Hemoglobin 28.2 pg (27.0-31.0); Mean Corpuscular Volume 88.1 fL (78.0-98.0); Mean Platelet Volume 9.7 fL (7.4-10.4); Platelet Count 647 10x3/uL (130-400); RBC Distribution Width 18.4 % (11.5-14.5); Red Blood Cell (RBC) Count 3.62 mill/uL (4.20-5.40)
[2023-11-07 09:00] LABS: Lactic Acid 1.23 mmol/L (0.5-2.2)
[2023-11-07 09:04] LABS: Anion Gap 17 mmol/L (10-20); BUN (Urea Nitrogen) 37 mg/dL (9.8-20.1); Calc. Creatinine Clearance 0 mL/min (70-130); Calcium 8.8 mg/dL (7.8-10.44); Carbon Dioxide 16 mmol/L (23-31); Chloride 105 mmol/L (98-107); Estimated GFR 42; Glucose 164 mg/dL (80-115); Sodium 134 mmol/L (136-145)
[2023-11-07] MEDS ORDERED: Ondansetron PF 4 MG/2 ML Vial IVP PRN (09:04)
[2023-11-07 09:11] LABS: INR-International Normal Ratio 1.2; PTT 37.6 sec (22.9-36.1); Prothrombin Time 15.1 sec (12.0-14.7)
[2023-11-07 09:19] LABS: Bilirubin Negative (Negative); Blood, Urine Negative (Negative); CAUTI Indications for Culture Pelvic or flank pain; Clarity Clear (Clear); Glucose, Urine (Dipstick) 200 mg/dL (Negative); Ketone, Urine Negative (Negative); Leukocyte 25 Leu/uL (Negative); Nitrite Negative (Negative); Protein, Urine (Dipstick) 20 mg/dL (Neg-Trace); RBC/HPF 0-3 HPF (0-3); Specific Gravity, Urine 1.026 (1.002-1.036); Squamous Epithelial 0-3 HPF (0-3); Urobilinogen Normal mg/dL (Less than 2); pH, Urine 5.5 (5.0-9.0)
[2023-11-07 09:20] LABS: Bacteria/HPF Rare-Few HPF (None Seen); Urine Culture Reflex No No
[2023-11-07] MEDS ORDERED: Etomidate 40 MG (20 mL) VIAL ONE (09:24)
[2023-11-07] MEDS ORDERED: Norepinephrine 4 MG/4 ML VIAL ONE (09:36)
[2023-11-07] MEDS ORDERED: EPINEPHrine 1 MG/ML VIAL ONE (09:39)
[2023-11-07] MEDS ORDERED: Vasopressin 20 UNITS/ML VIAL ONE (09:39)
[2023-11-07 09:44] LABS: Band 15 % (5-11); Eosinophils 2 % (0-10); Lymphocytes 1 % (21-51); Monocytes 6 % (0-10); Neutrophil 76 % (42-75); Platelet Adequacy Comment Platelets Increased; Polychromasia SLIGHT = 2-3 cells HPF (0-2)
[2023-11-07] MEDS ORDERED: fentaNYL PF 100 MCG/2 ML SYRINGE ONE ×2 (09:58→12:50)
[2023-11-07] MEDS ORDERED: cefOXitin 2 GM VIAL ONE (10:27)
[2023-11-07] MEDS ORDERED: Midazolam HCl 2 mg/2 ml Vial ONE (10:44)
[2023-11-07] MEDS ORDERED: Ketamine In 0.9 % NaCl 50 MG/5 ML SYRINGE ONE (10:44)
[2023-11-07] MEDS ORDERED: Dexamethasone 20 MG/5 ML VIAL ONE (10:50)
[2023-11-07] MEDS ORDERED: Lidocaine 2% PF 5 ML VIAL ONE (11:11)
[2023-11-07] MEDS ORDERED: Rocuronium Bromide 10 MG/ML (10ML VIAL) ONE (11:11)
[2023-11-07] MEDS ORDERED: PHENYLEPHRINE-NS 100 MCG/ML 10 ML SYRINGE ONE (11:33)
[2023-11-07] MEDS ORDERED: SUGAMMADEX SODIUM 200 MG/2 ML VIAL ONE (11:48)
[2023-11-07] MEDS ORDERED: Ondansetron PF 4 MG/2 ML Vial ONE (11:52)
[2023-11-07] MEDS ORDERED: Iopamidol-370 76% 500 ML MDV (1 ML CHARGE) ONE (13:53)
[2023-11-07] MEDS ORDERED: fentaNYL 50 mcg/mL 1 mL Vial ONE (14:43)
[2023-11-07 16:17] VITALS: BMI 18.9
[2023-11-07] MEDS: Sodium Chloride 0.9% 1,000 ML IV SCH (16:34)
[2023-11-07] MEDS: Piperacillin/Tazobactam 3.375 GM in Sodium Chloride 0.9% 100 ML IVPB SCH ×2 (17:14→17:56)
[2023-11-07] MEDS: Morphine 4 MG/ML VIAL SLOW IVP PRN (17:57)
[2023-11-07] MEDS: Heparin 25,000 units/D5W 500 ML IVPB SCH (21:00)
[2023-11-07] MEDS: Heparin 10,000 UNITS/ 10 ML VIAL SLOW IVP SCH (21:00)
[2023-11-08 03:21] LABS: #Basophils 0.05 10x3/uL (0.0-0.2); #Eosinphils Less than 0.03 10x3/uL (0.0-0.7); %Basophils 0.2 % (0.0-1.0); %Lymphocytes 6.1 % (21.0-51.0); %Monocytes 5.5 % (0.0-10.0); %Neutrophils 87.4 % (42.0-75.0); Hematocrit 23.8 % (36.0-47.0); Hemoglobin 7.7 g/dL (12.0-16.0); Mean Corpuscular HGB CONC 32.4 g/dL (32.0-36.0); Mean Corpuscular Hemoglobin 28.6 pg (27.0-31.0); Mean Corpuscular Volume 88.5 fL (78.0-98.0); Mean Platelet Volume 10.1 fL (7.4-10.4); Platelet Count 484 10x3/uL (130-400); RBC Distribution Width 18.9 % (11.5-14.5); Red Blood Cell (RBC) Count 2.69 mill/uL (4.20-5.40)
[2023-11-08 03:46] LABS: ALT (SGPT) 8 U/L (8-55); AST (SGOT) 10 U/L (5-34); Albumin 2.2 g/dL (3.4-4.8); Alkaline Phosphatase 71 U/L (40-110); Anion Gap 15 mmol/L (10-20); BUN (Urea Nitrogen) 27 mg/dL (9.8-20.1); Bilirubin, Total 0.3 mg/dL (0.2-1.2); Calc. Creatinine Clearance 45 mL/min (70-130); Carbon Dioxide 15 mmol/L (23-31); Chloride 114 mmol/L (98-107); Estimated GFR 76; Globulin 3.4 g/dL (2.4-3.5); Glucose 102 mg/dL (80-115); Potassium 3.7 mmol/L (3.5-5.1); Protein, Total 5.6 g/dL (5.8-8.1); Sodium 140 mmol/L (136-145)
[2023-11-08] MEDS: Morphine 2 MG/ML VIAL SLOW IVP SCH (03:54)
[2023-11-08] MEDS ORDERED: Sodium Chloride 0.9% (PF) 10 ML VIAL FS PRN (07:45)
[2023-11-08] MEDS: Pantoprazole 40 MG VIAL IVP SCH (09:02)
[2023-11-08] MEDS: Morphine 2 MG/ML VIAL SLOW IVP PRN (10:30)
[2023-11-08 14:20] LABS: Hematocrit 24.4 % (36.0-47.0); Hemoglobin 7.9 g/dL (12.0-16.0); Platelet Count 532 10x3/uL (130-400)
[2023-11-08 15:42] VITALS: BMI 18.9
[2023-11-08] MEDS: Dextrose 5%-Lactated Ringers 1,000 ML IV SCH (16:51)
[2023-11-08] MEDS: Amino Acids 4.25 %/Dextrose 5% 1,000 ML IV SCH (18:09)
[2023-11-08] MEDS ORDERED: Lorazepam 2 MG/ML VIAL SLOW IVP SCH (23:45)
[2023-11-08] MEDS: Lorazepam 2 MG/ML VIAL SLOW IVP SCH (23:55)
[2023-11-09 06:32] LABS: #Basophils 0.09 10x3/uL (0.0-0.2); %Basophils 0.6 % (0.0-1.0); %Eosinophils 3.7 % (0.0-10.0); %Lymphocytes 11.8 % (21.0-51.0); %Monocytes 7.5 % (0.0-10.0); %Neutrophils 75.6 % (42.0-75.0); Hematocrit 22.6 % (36.0-47.0); Hemoglobin 7.2 g/dL (12.0-16.0); Mean Corpuscular HGB CONC 31.9 g/dL (32.0-36.0); Mean Corpuscular Hemoglobin 27.7 pg (27.0-31.0); Mean Corpuscular Volume 86.9 fL (78.0-98.0); Mean Platelet Volume 10.7 fL (7.4-10.4); Platelet Count 462 10x3/uL (130-400); RBC Distribution Width 19.1 % (11.5-14.5)
[2023-11-09 06:51] LABS: Cardiac Risk 9.4 (Less than 4.5); Cholesterol 150 mg/dl (< 200 Desired); HDL Cholesterol 16 mg/dL (>60 Neg Risk); LDL Cholesterol, Calculated 86 mg/dL; Phosphorus 1.8 mg/dL (2.3-4.7); Triglycerides 239 mg/dL (Less than 150)
[2023-11-09 06:52] LABS: ALT (SGPT) 6 U/L (8-55); AST (SGOT) 10 U/L (5-34); Albumin 2.2 g/dL (3.4-4.8); Alkaline Phosphatase 75 U/L (40-110); Anion Gap 12 mmol/L (10-20); BUN (Urea Nitrogen) 23 mg/dL (9.8-20.1); Bilirubin, Total 0.3 mg/dL (0.2-1.2); Calc. Creatinine Clearance 50 mL/min (70-130); Calcium 7.8 mg/dL (7.8-10.44); Carbon Dioxide 17 mmol/L (23-31); Chloride 110 mmol/L (98-107); Estimated GFR 85; Glucose 108 mg/dL (80-115); Magnesium 1.2 mg/dL (1.6-2.6); Potassium 3.1 mmol/L (3.5-5.1); Protein, Total 5.2 g/dL (5.8-8.1); Sodium 136 mmol/L (136-145)
[2023-11-09 06:57] LABS: INR-International Normal Ratio 1.2; PTT 35.3 sec (22.9-36.1); Prothrombin Time 15.5 sec (12.0-14.7)
[2023-11-09] MEDS: Enoxaparin 40 MG (0.4 mL) SYRINGE SC SCH (09:07)
[2023-11-09] MEDS: Fat Emulsion 250 ML, Multivitamins, Adult 10 ML, TRACE ELEMENT CONCENTRATE 1 ML in D15W... IV SCH (15:16)
[2023-11-09] MEDS: ALPRAZolam 0.5 MG TAB PO PRN (23:39)
[2023-11-10 06:36] LABS: #Basophils 0.06 10x3/uL (0.0-0.2); %Basophils 0.4 % (0.0-1.0); %Eosinophils 5.3 % (0.0-10.0); %Lymphocytes 15.5 % (21.0-51.0); %Monocytes 8.1 % (0.0-10.0); %Neutrophils 69.8 % (42.0-75.0); Hematocrit 25.7 % (36.0-47.0); Hemoglobin 8.2 g/dL (12.0-16.0); Mean Corpuscular HGB CONC 31.9 g/dL (32.0-36.0); Mean Corpuscular Hemoglobin 28.3 pg (27.0-31.0); Mean Corpuscular Volume 88.6 fL (78.0-98.0); Mean Platelet Volume 10.1 fL (7.4-10.4); Platelet Count 521 10x3/uL (130-400); RBC Distribution Width 18.7 % (11.5-14.5)
[2023-11-10 06:52] LABS: ALT (SGPT) 7 U/L (8-55); AST (SGOT) 11 U/L (5-34); Albumin 2.4 g/dL (3.4-4.8); Alkaline Phosphatase 75 U/L (40-110); Anion Gap 16 mmol/L (10-20); BUN (Urea Nitrogen) 19 mg/dL (9.8-20.1); Bilirubin, Total 0.3 mg/dL (0.2-1.2); Calc. Creatinine Clearance 51 mL/min (70-130); Calcium 8.7 mg/dL (7.8-10.44); Carbon Dioxide 19 mmol/L (23-31); Chloride 109 mmol/L (98-107); Estimated GFR 86; Globulin 4.2 g/dL (2.4-3.5); Glucose 123 mg/dL (80-115); Magnesium 1.4 mg/dL (1.6-2.6); Phosphorus 3.4 mg/dL (2.3-4.7); Potassium 2.7 mmol/L (3.5-5.1); Protein, Total 6.6 g/dL (5.8-8.1); Sodium 141 mmol/L (136-145)
[2023-11-10] MEDS: Clopidogrel Bisulfate 75 MG TAB PO SCH (08:13)
[2023-11-10] MEDS: Aspirin Chewable 81 MG TAB PO SCH (08:13)
[2023-11-10] MEDS: Potassium Chloride 20 MEQ in Premix 1 BAG IVPB SCH (08:16)
[2023-11-10] MEDS: Potassium Chloride 20 MEQ TAB PO SCH ×2 (09:52→17:51)
[2023-11-10] MEDS: Magnesium 2 GM/50 ML(in water) 4 GM in Premix 1 BAG IVPB SCH (10:44)
[2023-11-10] MEDS: MULTIVITAMINS IV SCH (13:55)
[2023-11-10] MEDS: TRACE ELEMENT IV SCH (13:55)
[2023-11-10] MEDS: [UNRECOGNIZED DRUG - OTHER] IV SCH (13:55)
[2023-11-10] MEDS: FAT EMULSION IV SCH (13:55)
[2023-11-11 06:27] LABS: #Basophils 0.04 10x3/uL (0.0-0.2); %Basophils 0.8 % (0.0-1.0); %Lymphocytes 15.7 % (21.0-51.0); %Monocytes 7.8 % (0.0-10.0); %Neutrophils 63.1 % (42.0-75.0); Hematocrit 42.3 % (36.0-47.0); Hemoglobin 13.8 g/dL (12.0-16.0); Mean Corpuscular HGB CONC 32.6 g/dL (32.0-36.0); Mean Corpuscular Hemoglobin 27.7 pg (27.0-31.0); Mean Corpuscular Volume 84.8 fL (78.0-98.0); Platelet Count 257 10x3/uL (130-400); RBC Distribution Width 19.6 % (11.5-14.5); Red Blood Cell (RBC) Count 4.99 mill/uL (4.20-5.40)
[2023-11-11 06:34] LABS: ALT (SGPT) 8 U/L (8-55); AST (SGOT) 12 U/L (5-34); Albumin 2.3 g/dL (3.4-4.8); Alkaline Phosphatase 91 U/L (40-110); Anion Gap 14 mmol/L (10-20); BUN (Urea Nitrogen) 16 mg/dL (9.8-20.1); Bilirubin, Total 0.3 mg/dL (0.2-1.2); Calc. Creatinine Clearance 61 mL/min (70-130); Calcium 8.2 mg/dL (7.8-10.44); Carbon Dioxide 17 mmol/L (23-31); Chloride 114 mmol/L (98-107); Estimated GFR 98; Globulin 3.7 g/dL (2.4-3.5); Glucose 111 mg/dL (80-115); Magnesium 2.2 mg/dL (1.6-2.6); Phosphorus 2.5 mg/dL (2.3-4.7); Potassium 3.9 mmol/L (3.5-5.1); Sodium 141 mmol/L (136-145)
[2023-11-11] MEDS: Pantoprazole DR 40 MG TAB PO SCH (09:06)
[2023-11-11] MEDS: Acetaminophen 325 MG TAB PO PRN (17:17)
[2023-11-11] MEDS: Ipratropium/Albuterol 3 ML NEB NEB SCH (18:14)
[2023-11-11 18:24] LABS: Actual Bicarbonate (HCO3a) 16.6 mEq/L (22-28); Calcium, Ionized (arterial) 1.16 mmol/L (1.12-1.30); Hematocrit-ABG 25 % (36.0-47.0); Hemoglobin (Hb) 8.4 g/dL (12.0-16.0); O2 Tension (PaO2), arterial 203.2 mmHg (> 80.0); Potassium - ABG Lab 4.29 mmol/L (3.70-5.30); pH, Arterial 7.472 (7.35-7.45)
[2023-11-11 18:25] LABS: Puncture Site Left Brachial artery
[2023-11-11 19:37] LABS: Anion Gap 16 mmol/L (10-20); BUN (Urea Nitrogen) 15 mg/dL (9.8-20.1); Calc. Creatinine Clearance 53 mL/min (70-130); Calcium 9.1 mg/dL (7.8-10.44); Carbon Dioxide 15 mmol/L (23-31); Chloride 113 mmol/L (98-107); Estimated GFR 92; Glucose 130 mg/dL (80-115); Potassium 4.7 mmol/L (3.5-5.1); Sodium 139 mmol/L (136-145)
[2023-11-11 19:44] LABS: Troponin I 0.027 ng/mL (< 0.028)
[2023-11-11] MEDS: Carvedilol 6.25 MG TAB PO SCH (20:42)
[2023-11-11 21:04] LABS: #Basophils 0.07 10x3/uL (0.0-0.2); %Basophils 0.6 % (0.0-1.0); %Eosinophils 8.1 % (0.0-10.0); %Lymphocytes 12.5 % (21.0-51.0); %Monocytes 8.9 % (0.0-10.0); %Neutrophils 68.2 % (42.0-75.0); Hematocrit 22.9 % (36.0-47.0); Hemoglobin 7.2 g/dL (12.0-16.0); Mean Corpuscular HGB CONC 31.4 g/dL (32.0-36.0); Mean Corpuscular Hemoglobin 27.9 pg (27.0-31.0); Mean Corpuscular Volume 88.8 fL (78.0-98.0); Mean Platelet Volume 10.2 fL (7.4-10.4); Platelet Count 434 10x3/uL (130-400); RBC Distribution Width 18.6 % (11.5-14.5); Red Blood Cell (RBC) Count 2.58 mill/uL (4.20-5.40)
[2023-11-11] MEDS ORDERED: Ipratropium/Albuterol 3 ML NEB NEB PRN (22:12)
[2023-11-11 23:42] LABS: Hematocrit 23.5 % (36.0-47.0); Hemoglobin 7.4 g/dL (12.0-16.0)
[2023-11-12] MEDS: Piperacillin/Tazobactam 3.375 GM VIAL ONE (01:45)
[2023-11-12 04:47] LABS: #Basophils 0.06 10x3/uL (0.0-0.2); %Basophils 0.6 % (0.0-1.0); %Lymphocytes 14.4 % (21.0-51.0); %Monocytes 10.2 % (0.0-10.0); %Neutrophils 61.5 % (42.0-75.0); Hematocrit 22.9 % (36.0-47.0); Hemoglobin 7.3 g/dL (12.0-16.0); Mean Corpuscular HGB CONC 31.9 g/dL (32.0-36.0); Mean Corpuscular Hemoglobin 27.5 pg (27.0-31.0); Mean Corpuscular Volume 86.4 fL (78.0-98.0); Mean Platelet Volume 10.4 fL (7.4-10.4); Platelet Count 400 10x3/uL (130-400); RBC Distribution Width 18.8 % (11.5-14.5); Red Blood Cell (RBC) Count 2.65 mill/uL (4.20-5.40)
[2023-11-12 05:09] LABS: ALT (SGPT) 242 U/L (8-55); AST (SGOT) 371 U/L (5-34); Albumin 2.3 g/dL (3.4-4.8); Alkaline Phosphatase 517 U/L (40-110); Anion Gap 15 mmol/L (10-20); BUN (Urea Nitrogen) 13 mg/dL (9.8-20.1); Bilirubin, Total 0.9 mg/dL (0.2-1.2); Calc. Creatinine Clearance 58 mL/min (70-130); Calcium 8.7 mg/dL (7.8-10.44); Carbon Dioxide 17 mmol/L (23-31); Chloride 110 mmol/L (98-107); Estimated GFR 97; Globulin 3.9 g/dL (2.4-3.5); Glucose 129 mg/dL (80-115); Magnesium 1.9 mg/dL (1.6-2.6); Phosphorus 3.1 mg/dL (2.3-4.7); Potassium 4.8 mmol/L (3.5-5.1); Protein, Total 6.2 g/dL (5.8-8.1); Sodium 137 mmol/L (136-145)
[2023-11-12 08:16] LABS: CO2 Tension 23.2 mmHg (35.0-45.0)
[2023-11-12] MEDS: Enoxaparin 30 MG (0.3 mL) SYRINGE SC SCH (09:26)
[2023-11-12 12:55] LABS: Actual Bicarbonate (HCO3a) 16.4 mEq/L (22-28); Analyzer IN Cardio OR; Base Excess (BEa) -8.8 mEq/L (-2.0 to +3.0); CO2 Tension 32.2 mmHg (35.0-45.0); Calcium, Ionized (arterial) 1.11 mmol/L (1.12-1.30); Carboxyhemoglobin (COHb) 1.5 gm% (0.0-3.0); Hematocrit-ABG 24 % (36.0-47.0); O2 Tension (PaO2), arterial 488.4 mmHg (> 80.0); Potassium - ABG Lab 3.68 mmol/L (3.70-5.30); Puncture Site Arterial Line; pH, Arterial 7.324 (7.35-7.45)
[2023-11-12] MEDS ORDERED: ALPRAZolam 0.5 MG TAB PO PRN (14:09)
[2023-11-12] MEDS: traMADol HCl 50 MG TAB PO PRN (15:01)
[2023-11-12] MEDS: Ibuprofen 600 MG TAB PO PRN (15:02)
[2023-11-12] MEDS ORDERED: Acetaminophen 500 MG TAB PO SCH (17:00)
[2023-11-12] MEDS: Acetaminophen 325 MG TAB PO SCH (17:25)
[2023-11-12] MEDS: HYDROcodone/Acetaminophen 5/325 mg Tablet PO PRN (17:26)
[2023-11-12] MEDS: Mirtazapine 15 MG TAB PO SCH (20:53)
[2023-11-12 23:51] VITALS: TEMP 97.7
[2023-11-13 05:25] LABS: #Basophils 0.08 10x3/uL (0.0-0.2); %Basophils 0.6 % (0.0-1.0); %Eosinophils 11.1 % (0.0-10.0); %Lymphocytes 14.6 % (21.0-51.0); %Monocytes 9.9 % (0.0-10.0); %Neutrophils 61.8 % (42.0-75.0); Hematocrit 25.3 % (36.0-47.0); Hemoglobin 8.2 g/dL (12.0-16.0); Mean Corpuscular HGB CONC 32.4 g/dL (32.0-36.0); Mean Corpuscular Hemoglobin 28.9 pg (27.0-31.0); Mean Corpuscular Volume 89.1 fL (78.0-98.0); Mean Platelet Volume 10.3 fL (7.4-10.4); Platelet Count 500 10x3/uL (130-400); RBC Distribution Width 19.2 % (11.5-14.5); Red Blood Cell (RBC) Count 2.84 mill/uL (4.20-5.40)
[2023-11-13 05:42] LABS: ALT (SGPT) 167 U/L (8-55); AST (SGOT) 76 U/L (5-34); Albumin 2.6 g/dL (3.4-4.8); Alkaline Phosphatase 468 U/L (40-110); Anion Gap 15 mmol/L (10-20); BUN (Urea Nitrogen) 16 mg/dL (9.8-20.1); Bilirubin, Total 0.6 mg/dL (0.2-1.2); Calc. Creatinine Clearance 51 mL/min (70-130); Calcium 9.3 mg/dL (7.8-10.44); Carbon Dioxide 19 mmol/L (23-31); Chloride 109 mmol/L (98-107); Estimated GFR 86; Globulin 4.1 g/dL (2.4-3.5); Glucose 109 mg/dL (80-115); Potassium 4.2 mmol/L (3.5-5.1); Protein, Total 6.7 g/dL (5.8-8.1); Sodium 139 mmol/L (136-145)
[2023-11-13 05:50] LABS: Phosphorus 4.9 mg/dL (2.3-4.7)
[2023-11-13] MEDS: Amiodarone 200 MG TAB PO SCH (10:07)
[2023-11-13] MEDS: Empagliflozin 10 MG TAB PO SCH (10:08)
[2023-11-13] MEDS: Gabapentin 300 MG CAP PO SCH (10:10)
[2023-11-13] MEDS: Polyethylene Glycol 3350 17 GM Packet PO SCH (10:10)
[2023-11-13] MEDS ORDERED: Acetaminophen 500 MG TAB PO SCH (13:00)
[2023-11-13 13:14] VITALS: BP 136/72
== END 2023-11-13 14:15 | disposition home or self-care (01) | DRG 329 ==
LOC: SUATTDRO 05:43 → ERS 05:43 → SDC 09:08 → IMCU/EMU 16:35 → SURG A 11-08 14:13
PROVIDERS: ADMIT Internal Medicine; ATTEND Internal Medicine
PROC: 0DBB0ZZ Excision of Ileum, Open Approach (ICD-10-PCS; principal; 2023-11-07)
PROC: 0DBF0ZZ Excision of Right Large Intestine, Open Approach (ICD-10-PCS; 2023-11-07)
PROC: 0DN80ZZ Release Small Intestine, Open Approach (ICD-10-PCS; 2023-11-07)
PROC: 30233R1 Transfusion of Nonautologous Platelets into Peripheral Vein, Percutaneous Approach (ICD-10-PCS; 2023-11-07)
PROC: 4A133R1 Monitoring of Arterial Saturation, Peripheral, Percutaneous Approach (ICD-10-PCS; 2023-11-07)
PROC: 3E033XZ Introduction of Vasopressor into Peripheral Vein, Percutaneous Approach (ICD-10-PCS; 2023-11-07)
DX: K55.9 Vascular disorder of intestine, unspecified (principal); K65.9 Peritonitis, unspecified; I50.22 Chronic systolic (congestive) heart failure; N17.9 Acute kidney failure, unspecified; I97.191 Other postprocedural cardiac functional disturbances following other surgery; E44.0 Moderate protein-calorie malnutrition; Z68.1 Body mass index [BMI] 19.9 or less, adult; D62 Acute posthemorrhagic anemia; I13.0 Hypertensive heart and chronic kidney disease with heart failure and stage 1 through stage 4 chronic kidney disease, or unspecified chronic kidney disease; I73.9 Peripheral vascular disease, unspecified; K66.0 Peritoneal adhesions (postprocedural) (postinfection); K63.89 Other specified diseases of intestine; F17.210 Nicotine dependence, cigarettes, uncomplicated; I10 Essential (primary) hypertension; E78.5 Hyperlipidemia, unspecified; I25.10 Atherosclerotic heart disease of native coronary artery without angina pectoris; Z95.1 Presence of aortocoronary bypass graft; Z98.890 Other specified postprocedural states; Z88.8 Allergy status to other drugs, medicaments and biological substances; Z79.82 Long term (current) use of aspirin; Z71.6 Tobacco abuse counseling
CPT/HCPCS: 36415; 36416; 36430; 36600; 71045; 74177; 80053; 80061; 81001; 82805; 83605; 83690; 83735; 83880; 84100; 84134; 84484; 85025; 85610; 85730; 86850; 86900; 86901; 87040; 87070; 87205; 88307; 93005; 93010; 94640; A4649; J0171; J0694; J1100; J1644; J1650; J2001; J2060; J2250; J2272; J2405; J2470; J2543; J3010; J3475; J3480; J3490; J7030; J7620; P9035; Q9967